=== PATIENT | female | born 1970 | race Caucasian/White ===

== ENCOUNTER 2018-10-15 20:17 | Observation (INO) | payer BC, OTHER ==
[~2018-10-15] VITALS: Ht 167.6 cm; Wt 117.6 kg
[2018-10-15] MEDS ORDERED: RT-ALBUTEROL/IPRATROPIUM 3 ML (DUONEB) VIAL ONE (20:18)
[2018-10-15] MEDS ORDERED: RT-ALBUTEROL SULF 2.5 MG/3 ML PRE-MIX VIAL ONE (20:19)
[2018-10-15] MEDS ORDERED: RT-ALBUTEROL/IPRATROPIUM 3 ML (DUONEB) VIAL INH ONE (20:30)
[2018-10-15] MEDS ORDERED: MAGNESIUM 1 GM/100 ML IVPB 100 ML IV ONE (20:30)
[2018-10-15] MEDS ORDERED: methylPREDNISolone 125 MG (Solu-MEDROL) VIAL IVP ONE (20:30)
[2018-10-15] MEDS: RT-ALBUTEROL SULF 2.5 MG/3 ML PRE-MIX VIAL INH SCH (20:31)
--- NOTE | 2018-10-15 20:34 | ED Respiratory ---
General Chief Complaint: Respiratory Problems Stated Complaint: TROUBLE BREATHING Source: patient Exam Limitations: no limitations History of Present Illness Date Seen by Provider: Oct 15, 2018 Time Seen by Provider: 20:31 Initial Comments Pt awakened with shortness of breath 4-5 days ago which was mild at first. The dyspnea has gotten progressively worse since then associated with wheezing and nonproductive cough. No fevers. She smokes 1/2 ppd but hasnt x4 days. States she sat at another hospital waiting room for 3 hours before coming here. No history of this. No known history of asthma or COPD. states her left lung "shut down" a few years ago from an interaction between topamax and vistaril. She was given fluticasone and salmeterol at that time but states that it only made things worse. Timing/Duration: week, getting worse Severity: moderate Prior Episodes/Possible Cause: occasional episodes Associated Symptoms: cough, shortness of breath, wheezing Allergies and Home Medications Allergies Coded Allergies: hydroxyzine (Unverified Allergy, Severe, 10/15/18) topiramate (Unverified Allergy, Severe, 10/15/18) fluticasone (Unverified Allergy, Intermediate, 10/15/18) montelukast (Unverified Allergy, Intermediate, 10/15/18) salmeterol (Unverified Allergy, Intermediate, 10/15/18) Sulfa (Sulfonamide Antibiotics) (Verified Allergy, Unknown, 10/15/18) Patient Home Medication List Home Medication List Reviewed: Yes Review of Systems Review of Systems Constitutional: see HPI EENTM: see HPI Respiratory: see HPI, cough, short of breath, wheezing Cardiovascular: no symptoms reported Genitourinary: no symptoms reported Musculoskeletal: no symptoms reported Skin: no symptoms reported Psychiatric/Neurological: No Symptoms Reported Hematologic/Lymphatic: No Symptoms Reported Past Gqokryx-Bcbvwd-Fgeftv Hx Patient Social History Recent Foreign Travel: No Contact w/Someone Who Travel: No Physical Exam Vital Signs - First Documented 10/15/18 20:20 Temp 97.8 Pulse 109 Resp 37 B/P (MAP) 121/96 (104) Pulse Ox 97 O2 Delivery Room Air Capillary Refill : Height: '" Weight: lbs. oz. kg; BMI Method: General Appearance: WD/WN, moderate distress (tachypneic. Speaks in short phrases. ) Eyes: Bilateral Eye Normal Inspection, Bilateral Eye PERRL, Bilateral Eye EOMI HEENT: PERRL/EOMI, normal ENT inspection Respiratory: no accessory muscle use, decreased breath sounds, wheezing Cardiovascular: no murmur Gastrointestinal: normal bowel sounds, non tender, soft Neurologic/Psychiatric: alert, normal mood/affect, oriented x 3 Skin: normal color, warm/dry Progress/Results/Core Measures Suspected Sepsis SIRS Temperature: Pulse: Respiratory Rate: Laboratory Tests 10/15/18 20:22: White Blood Count 10.3 Blood Pressure / Mean: Laboratory Tests 10/15/18 20:22: Creatinine 0.86, Platelet Count 276, Total Bilirubin 0.4 Results/Orders Lab Results Laboratory Tests Test 10/15/18 20:22 10/15/18 20:52 Range/Units White Blood Count 10.3 4.3-11.0 10^3/uL Red Blood Count 4.88 4.35-5.85 10^6/uL Hemoglobin 15.0 11.5-16.0 G/DL Hematocrit 45 35-52 % Mean Corpuscular Volume 91 80-99 FL Mean Corpuscular Hemoglobin 31 25-34 PG Mean Corpuscular Hemoglobin Concent 34 32-36 G/DL Red Cell Distribution Width 13.6 10.0-14.5 % Platelet Count 276 130-400 10^3/uL Mean Platelet Volume 11.5 H 7.4-10.4 FL Neutrophils (%) (Auto) 59 42-75 % Lymphocytes (%) (Auto) 31 12-44 % Monocytes (%) (Auto) 9 0-12 % Eosinophils (%) (Auto) 1 0-10 % Basophils (%) (Auto) 0 0-10 % Neutrophils # (Auto) 6.1 1.8-7.8 X 10^3 Lymphocytes # (Auto) 3.2 1.0-4.0 X 10^3 Monocytes # (Auto) 1.0 0.0-1.0 X 10^3 Eosinophils # (Auto) 0.1 0.0-0.3 10^3/uL Basophils # (Auto) 0.0 0.0-0.1 10^3/uL Sodium Level 143 135-145 MMOL/L Potassium Level 3.2 L 3.6-5.0 MMOL/L Chloride Level 105 98-107 MMOL/L Carbon Dioxide Level 23 21-32 MMOL/L Anion Gap 15 H 5-14 MMOL/L Blood Urea Nitrogen 19 H 7-18 MG/DL Creatinine 0.86 0.60-1.30 MG/DL Estimat Glomerular Filtration Rate > 60 BUN/Creatinine Ratio 22 Glucose Level 93 70-105 MG/DL Calcium Level 10.2 H 8.5-10.1 MG/DL Corrected Calcium 8.5-10.1 MG/DL Magnesium Level 1.5 L 1.6-2.4 MG/DL Total Bilirubin 0.4 0.1-1.0 MG/DL Aspartate Amino Transf (AST/SGOT) 62 H 5-34 U/L Alanine Aminotransferase (ALT/SGPT) 63 H 0-55 U/L Alkaline Phosphatase 160 H 40-136 U/L Troponin I < 0.028 <0.028 NG/ML B-Type Natriuretic Peptide 28.5 <100.0 PG/ML Total Protein 8.0 6.4-8.2 GM/DL Albumin 4.7 H 3.2-4.5 GM/DL Serum Test, Qualitative NEGATIVE NEGATIVE Urine Color DIANA H Urine Clarity CLEAR Urine pH 6 5-9 Urine Specific Drayden 1.025 H 1.016-1.022 Urine Protein 2+ H NEGATIVE Urine Glucose (UA) NEGATIVE NEGATIVE Urine Ketones 2+ H NEGATIVE Urine Nitrite NEGATIVE NEGATIVE Urine Bilirubin 1+ H NEGATIVE Urine Urobilinogen 1 NORMAL MG/DL Urine Leukocyte Esterase 2+ H NEGATIVE Urine RBC (Auto) 1+ H NEGATIVE Urine RBC 0-2 /HPF Urine WBC 5-10 H /HPF Urine Squamous Epithelial Cells 5-10 /HPF Urine Crystals PRESENT H /LPF Urine Amorphous Sediment LARGE MAAME URATES H /LPF Urine Bacteria TRACE /HPF Urine Casts NONE /LPF Urine Mucus NEGATIVE /LPF Urine Trichomonas FEW H /HPF Urine Culture Indicated YES My Orders Orders - HAKAN PRINCE DATA ENTRY SUPERVISOR Cbc With Automated Diff (10/15/18 20:26) Comprehensive Metabolic Panel (10/15/18 20:26) Ua Culture If Indicated (10/15/18 20:26) Ed Iv/Invasive Line Start (10/15/18 20:26) Magnesium (10/15/18 20:26) Hcg,Qualitative Serum (10/15/18 20:26) Chest 1 View, Ap/Pa Only (10/15/18 20:26) BNP (10/15/18 20:26) Troponin I (10/15/18 20:26) Ekg Tracing (10/15/18 20:26) Ed Iv/Invasive Line Start (10/15/18 20:26) Albuterol/Ipra Inhalation Soln (Duoneb I (10/15/18 20:30) Svn Small Volume Nebulizer (10/15/18 20:26) Methylprednisolone Sod Succ (Solu-Medrol (10/15/18 20:30) Magnesium 1 Gm/100 Ml Ivpb (Magnesium Godoy (10/15/18 20:30) Albuterol Pre-Mix Nebs (Rt) (Proventil (10/15/18 20:30) Svn Small Volume Nebulizer (10/15/18 20:26) Ondansetron Injection (Zofran Injectio (10/15/18 20:45) Ondansetron Injection (Zofran Injectio (10/15/18 20:36) Potassium Cl 10meq/50ml Ivpb (Kcl 10 Meq (10/15/18 21:00) Urine Culture (10/15/18 20:52) Ns (Ivpb) (Sodium Chloride 0.9%) (10/15/18 21:15) Medications Given in ED Current Medications Medications Dose Ordered Sig/Kaykay Route Start Time Stop Time Status Last Admin Dose Admin Albuterol Sulfate 2.5 mg STK-MED ONCE .ROUTE 10/15/18 20:19 10/15/18 20:27 DC 10/15/18 20:31 2.5 MG Albuterol/ Ipratropium 3 ml STK-MED ONCE .ROUTE 10/15/18 20:18 10/15/18 20:26 DC 10/15/18 20:31 3 ML Magnesium Sulfate/ Dextrose 100 ml @ 100 mls/hr ONCE ONCE IV 10/15/18 20:30 10/15/18 21:29 DC 10/15/18 20:42 100 MLS/HR Methylprednisolone Sodium Succinate 125 mg ONCE ONCE IVP 10/15/18 20:30 10/15/18 20:31 DC 10/15/18 20:41 125 MG Ondansetron HCl 8 mg ONCE ONCE IVP 10/15/18 20:45 10/15/18 20:46 DC 10/15/18 20:45 8 MG Potassium Chloride 50 ml @ 50 mls/hr ONCE ONCE IV 10/15/18 21:00 10/15/18 21:59 10/15/18 21:19 50 MLS/HR Sodium Chloride 250 ml @ 0 mls/hr Q0M ONCE IV 10/15/18 21:15 10/15/18 21:16 DC 10/15/18 21:19 0 MLS/HR Vital Signs/I&O 10/15/18 10/15/18 20:20 20:32 Temp 97.8 Pulse 109 Resp 37 B/P (MAP) 121/96 (104) Pulse Ox 97 95 O2 Delivery Room Air Room Air Capillary Refill : Departure Communication (Admissions) Time/Spoke to Admitting Phy: 21:[address] Brandon, recommended agrees to admit observation status with the consult pulmonology. I spoke with Dr. Graff,he agrees to consult. 7-Pt has received 1gm mag sulfate iv bolus, hour long breathing treatment, solumedrol iV. O2 saturation remains 99% on the breathing treatment but she is still very wheezy on expiration. Would feel better admitting overnight for continued breathing treatments and observation. Impression Primary Impression: Reactive airway disease Qualified Codes: J45.901 - Unspecified asthma with (acute) exacerbation Disposition: ADMITTED INPATIENT Condition: Stable Admissions Decision to Admit Reason: Admit from ER (General) Decision to Admit/Date: Oct 15, 2018 Time/Decision to Admit Time: 21:39 Departure-Patient Inst. Referrals: NO,LOCAL PHYSICIAN (PCP/Family) Primary Care Physician HAKAN PRINCE APRN Oct 15, 2018 20:34
[2018-10-15] MEDS ORDERED: ONDANSETRON 4 MG/2 ML (SDV) Z0FRAN ONE (20:36)
[2018-10-15 20:38] LABS: BASOPHILS % (AUTO) 0 % (0-10); EOSINOPHILS # (AUTO) 0.1 10^3/uL (0.0-0.3); EOSINOPHILS % (AUTO) 1 % (0-10); HEMATOCRIT 45 % (35-52); LYMPHOCYTES # (AUTO) 3.2 X 10^3 (1.0-4.0); LYMPHOCYTES % (AUTO) 31 % (12-44); MEAN CORPUSCULAR HEMOGLOBIN 31 PG (25-34); MEAN CORPUSCULAR HGB CONC 34 G/DL (32-36); MEAN CORPUSCULAR VOLUME 91 FL (80-99); MEAN PLATELET VOLUME 11.5 FL (7.4-10.4); MONOCYTES % (AUTO) 9 % (0-12); NEUTROPHILS # (AUTO) 6.1 X 10^3 (1.8-7.8); NEUTROPHILS % (AUTO) 59 % (42-75); PLATELET COUNT 276 10^3/uL (130-400); RED CELL DISTRIBUTION WIDTH 13.6 % (10.0-14.5); WHITE BLOOD COUNT 10.3 10^3/uL (4.3-11.0)
[2018-10-15] MEDS ORDERED: ONDANSETRON 4 MG/2 ML (SDV) Z0FRAN IVP ONE (20:45)
[2018-10-15 20:50] LABS: ALANINE AMINOTRANSFERASE 63 U/L (0-55); ALBUMIN 4.7 GM/DL (3.2-4.5); ALKALINE PHOSPHATASE 160 U/L (40-136); BILIRUBIN,TOTAL 0.4 MG/DL (0.1-1.0); BUN/CREATININE RATIO 22; CALCIUM 10.2 MG/DL (8.5-10.1); CARBON DIOXIDE 23 MMOL/L (21-32); CHLORIDE 105 MMOL/L (98-107); CREATININE SERUM 0.86 MG/DL (0.60-1.30); GFR ESTIMATED > 60; GLUCOSE 93 MG/DL (70-105); MAGNESIUM 1.5 MG/DL (1.6-2.4); POTASSIUM 3.2 MMOL/L (3.6-5.0); SODIUM 143 MMOL/L (135-145)
[2018-10-15 20:57] LABS: CLARITY,URINE CLEAR; COLOR,URINE AMBER; GLUCOSE, URINE (UA) NEGATIVE (NEGATIVE); KETONES,URINE 2+ (NEGATIVE); LEUKOCYTE ESTERASE ,URINE 2+ (NEGATIVE); NITRITE,URINE NEGATIVE (NEGATIVE); PH,URINE 6 (5-9); PROTEIN,URINE 2+ (NEGATIVE); UROBILINOGEN,URINE 1 MG/DL (NORMAL)
[2018-10-15] MEDS ORDERED: POTASSIUM CL 10MEQ/50ML IVPB 50 ML IV ONE (21:00)
--- NOTE | 2018-10-15 21:04 | NUR ---
PT DENIES IMPROVEMENT AT THIS TIME. HAKAN MADE AWARE.
[2018-10-15 21:06] LABS: AMORPHOUS SEDIMENT,UR LARGE AMOR URATES /LPF; BACTERIA,URINE TRACE /HPF; RBC,URINE 0-2 /HPF
[2018-10-15 21:07] LABS: BILIRUBIN,URINE 1+ (NEGATIVE); TRICHOMONAS,URINE FEW /HPF
[2018-10-15] MEDS ORDERED: NS (IVPB) 250 ML IV ONE (21:15)
--- NOTE | 2018-10-15 21:29 | Diagnostic Imaging Report ---
EXAM: Chest 1 view, AP/PA only. INDICATION: Shortness of air. COMPARISON: None. FINDINGS: Normal heart size and pulmonary vascularity. No dense consolidation, pleural effusion or pneumothorax. No acute osseous findings. IMPRESSION: Negative chest. Dictated by: Dictated on workstation # [id number]
--- NOTE | 2018-10-15 22:32 | NUR ---
REPORT RECEIVED FROM ED NURSE AT THIS TIME. THIS RN WILL AWAIT PTS ARRIVAL TO FLOOR.
--- NOTE | 2018-10-15 22:40 | NUR ---
SETH SANTIAGO admitted to room 423-1, with an admitting diagnosis of Reactive Airway Disease, on 10/15/18 from ED via stretcher, accompanied by staff.SETH SANTIAGO introduced to surroundings, call light, bed controls, phone, TV, temperature control, lights, meal times, smoking policy, visitor policy, side rail policy, bathrooms and showers. Patient Rights given to patient in the handbook. SETH SANTIAGO verbalizes understanding that [facility] is not responsible for the loss or damage to any personal effects or valuables that are kept in the patients posession during their hospitalization.
[2018-10-15 22:57] VITALS: BP 128/85
[2018-10-15] MEDS ORDERED: TRAM50TA2 PO (23:31)
[2018-10-15] MEDS ORDERED: PROM25TA14 PO (23:32)
[2018-10-15] MEDS ORDERED: AMIT25TA9 PO (23:32)
[2018-10-15] MEDS ORDERED: ROSU40TA23 PO (23:32)
[2018-10-15] MEDS ORDERED: GALC100S SQ (23:34)
[2018-10-15] MEDS ORDERED: BUSP5TAB59 PO (23:34)
[2018-10-15] MEDS ORDERED: ONDANSETRON 4 MG/2 ML (SDV) Z0FRAN IV PRN (23:45)
[2018-10-16] VITALS (7 sets, daily range): BP systolic 113–137; BP diastolic 65–77
[2018-10-16] MEDS: RT-ALBUTEROL/IPRATROPIUM 3 ML (DUONEB) VIAL INH SCH ×5 (02:30→20:16)
[2018-10-16] MEDS ORDERED: methylPREDNISolone 125 MG (Solu-MEDROL) VIAL IV SCH (04:30)
[2018-10-16] MEDS: predniSONE 20 MG TAB PO SCH (09:28)
--- NOTE | 2018-10-16 09:45 | Pulmonary Consultation ---
History of Present Illness History of Present Illness Date of Consultation 10/16/18 09:40 Time Seen by Provider: 09:40 Date of Admission History of Present Illness 47 yo with hx of tobacco use presented secondary to worsening SOB, wheezing, nonproductive cough that started about 5 days ago. No known history of asthma or COPD. Allergies and Home Medications Allergies Coded Allergies: hydroxyzine (Unverified Allergy, Severe, 10/15/18) topiramate (Unverified Allergy, Severe, 10/15/18) fluticasone (Unverified Allergy, Intermediate, 10/15/18) montelukast (Unverified Allergy, Intermediate, 10/15/18) salmeterol (Unverified Allergy, Intermediate, 10/15/18) Sulfa (Sulfonamide Antibiotics) (Verified Allergy, Unknown, 10/15/18) Home Medications Amitriptyline HCl 25 Mg Tablet, 25 MG PO DAILY, (Reported) Buspirone HCl 5 Mg Tablet, 2 MG PO DAILY, (Reported) Galcanezumab-Gnlm 100 Mg/1 Ml Syringe, 100 MG SQ UD, (Reported) Promethazine HCl 25 Mg Tablet, 25 MG PO DAILY, (Reported) Rosuvastatin Calcium 40 Mg Tablet, 40 MG PO DAILY, (Reported) Tramadol HCl 50 Mg Tablet, 50 MG PO TID, (Reported) Past Acopooo-Haawuc-Ttjabv Hx Patient Social History Alcohol Use: Rarely Uses Number of Drinks Today: 0 Alcohol Beverage of Choice: Wine Recreational Drug Use: No Smoking Status: Current Everyday Smoker Type Used: Cigarettes Recent Foreign Travel: No Contact w/Someone Who Travel: No Recent Infectious Disease Expo: No Recent Hopitalizations: No Immunizations Up To Date PED Vaccines UTD: No Date of Pneumonia Vaccine: Sep 22, 2008 Seasonal Allergies Seasonal Allergies: No Past Medical History Surgeries: Yes Respiratory: No Cardiac: No Neurological: No Headaches /Migraines Genitourinary: No Gastrointestinal: No Musculoskeletal: Yes Fibromyalgia, Scoliosis, Chronic Back Pain Endocrine: No HEENT: No Cancer: No Psychosocial: Yes (MANIC DEPRESSION) Bipolar Integumentary: No Blood Disorders: No Family Medical History Patient reports no known family medical history. Sepsis Event Evaluation Height, Weight, BMI Height: 5'6.00" Weight: 259lbs. 4.0oz. 117.328361ac; 41.8 BMI Method:Stated Exam Exam Vital Signs Date Time Temp Pulse Resp B/P (MAP) Pulse Ox O2 Delivery O2 Flow Rate FiO2 10/16/18 07:35 97.5 97 20 125/65 (85) 96 Nasal Cannula 3.00 10/16/18 07:06 93 Nasal Cannula 3.00 10/16/18 07:00 113 10/16/18 04:08 96.9 88 20 113/75 (88) 95 Nasal Cannula 2.00 10/16/18 02:30 92 Nasal Cannula 2.00 10/16/18 01:00 93 10/16/18 00:15 89 95 21 10/16/18 00:11 97.5 89 20 116/75 (89) 94 Nasal Cannula 2.00 10/15/18 23:50 Nasal Cannula 2.00 10/15/18 23:49 90 10/15/18 22:57 99.7 110 29 128/85 (99) 98 Nasal Cannula 2.00 10/15/18 22:57 99.7 110 29 128/85 98 Nasal Cannula 2.00 10/15/18 22:45 Room Air 10/15/18 22:33 98.3 99 24 131/83 (99) 96 Nasal Cannula 2.00 10/15/18 20:32 95 Room Air 10/15/18 20:20 97.8 109 37 121/96 (104) 97 Room Air I & O 10/16/18 07:00 Intake Total 800 ml Balance 800 ml Height & Weight Height: 5'6.00" Weight: 259lbs. 4.0oz. 117.418618jh; 41.8 BMI Method:Stated Capillary Refill: Less Than 3 Seconds Gastrointestinal: normal bowel sounds, non tender, soft Results Lab Laboratory Tests 10/15/18 20:22 Assessment/Plan Assessment/Plan Acute bronchitis vs asthma -Currently on 3 liters of oxygen -CXR is negative -Needs out pt testing -SVNs -Prednisone -Monitor KIM ELIZONDO DO Oct 16, 2018 09:45
[2018-10-16] MEDS ORDERED: RT-ALBUTEROL SULF 2.5 MG/3 ML PRE-MIX VIAL INH STA (10:12)
[2018-10-16] MEDS ORDERED: RT-IPRATROPIUM (ATROVENT) 0.5MG/2.5ML AMP IH STA (10:12)
[2018-10-16 10:25] LABS: ALANINE AMINOTRANSFERASE 54 U/L (0-55); ALBUMIN 4.1 GM/DL (3.2-4.5); ALKALINE PHOSPHATASE 145 U/L (40-136); BILIRUBIN,TOTAL 0.3 MG/DL (0.1-1.0); BUN/CREATININE RATIO 18; CALCIUM 8.8 MG/DL (8.5-10.1); CARBON DIOXIDE 18 MMOL/L (21-32); CHLORIDE 105 MMOL/L (98-107); CREATININE SERUM 0.83 MG/DL (0.60-1.30); GFR ESTIMATED > 60; GLUCOSE 299 MG/DL (70-105); MAGNESIUM 1.6 MG/DL (1.6-2.4); POTASSIUM 3.7 MMOL/L (3.6-5.0); SODIUM 140 MMOL/L (135-145); TOTAL PROTEIN 7.1 GM/DL (6.4-8.2)
--- NOTE | 2018-10-16 10:54 | History & Physical-Hospitalist ---
History of Present Illness HPI/Chief Complaint Guerline Rivera is a 47-year-old female with past medical history of hyperlipidemia, anxiety, who presented with shortness of breath and cough. She states that the symptoms began on Wednesday. She says that they have been w orsening since that time. She initially drove to the emergency room in [place], but due to the long wait she decided to come to the [facility]. She denies fevers and chills. She reports some chest discomfort which is only present after she coughs. She does report orthopnea and PND. She also reports snoring and observed apneas. She reports that she had attempted a sleep study but was unable to complete it. She reports a history of "my left lung shutting down". She says that it was due to a medication and that she does not follow with a jewelsmith. She does smoke about a half a pack a day for the past 8 years. She has no known family history of lung disease as she is adopted. Source: patient Exam Limitations: no limitations Date Seen 10/16/18 Time Seen by a Provider: 09:30 Attending Physician Carie Hanley MD PCP No,Local Physician Referring Physician Date of Admission Oct 15, 2018 at 21:37 Home Medications & Allergies Home Medications Reviewed patient Home Medication Reconciliation performed by pharmacy medication reconciliations infectious disease technician and/or nursing. Patients Allergies have been reviewed. Allergies Allergies Coded Allergies hydroxyzine (Unverified Allergy, Severe, 10/15/18) topiramate (Unverified Allergy, Severe, 10/15/18) fluticasone (Unverified Allergy, Intermediate, 10/15/18) montelukast (Unverified Allergy, Intermediate, 10/15/18) salmeterol (Unverified Allergy, Intermediate, 10/15/18) Sulfa (Sulfonamide Antibiotics) (Verified Allergy, Unknown, 10/15/18) Past Uequqmh-Hrheui-Enrdzn Hx Past Med/Social Hx: Reviewed Nursing Past Med/Soc Hx Patient Social History Alcohol Use: Rarely Uses Number of Drinks Today: 0 Alcohol Beverage of Choice: Wine Recreational Drug Use: No Smoking Status: Current Everyday Smoker Type Used: Cigarettes Physical Abuse Screen: No Sexual Abuse: No Recent Foreign Travel: No Contact w/other who traveled: No Recent Hopitalizations: No Recent Infectious Disease Expo: No Immunizations Up To Date Pediatric: No Date of Pneumonia Vaccine: Sep 22, 2008 Seasonal Allergies Seasonal Allergies: No Past Medical History Neurological: Headaches /Migraines Musculoskeletal: Fibromyalgia, Scoliosis, Chronic Back Pain Psychosocial: Bipolar History of Blood Disorders: No Family History Patient reports no known family medical history. Review of Systems Constitutional: No chills, No fever EENTM: no symptoms reported Respiratory: cough, short of breath, wheezing Cardiovascular: chest pain Gastrointestinal: no symptoms reported Musculoskeletal: no symptoms reported Skin: no symptoms reported Psychiatric/Neurological: No Symptoms Reported Physical Exam Physical Exam Vital Signs Vital Signs - First Documented 10/15/18 10/15/18 10/16/18 20:20 22:33 00:15 Temp 97.8 Pulse 109 Resp 37 B/P (MAP) 121/96 (104) Pulse Ox 97 O2 Delivery Room Air O2 Flow Rate 2.00 FiO2 21 Capillary Refill : Less Than 3 Seconds Height, Weight, BMI Height: 5'6.00" Weight: 259lbs. 4.0oz. 117.143279ue; 41.8 BMI Method:Stated General Appearance: No Apparent Distress, WD/WN, Anxious, Obese HEENT: PERRL/EOMI, Pharynx Normal, Moist Mucous Membranes Neck: Normal Inspection, Non Tender, Supple; No Thyromegaly Respiratory: No Accessory Muscle Use, No Respiratory Distress; No Crackles, No Decreased Breath Sounds, No Rhonci; Wheezing (diffuse expiratory and inspiratory wheezing) Cardiovascular: Regular Rate, Rhythm, No Edema, No Murmur Gastrointestinal: Normal Bowel Sounds, Non Tender, Soft Extremity: Normal Inspection, Non Tender, No Pedal Edema Neurologic/Psychiatric: Alert, Oriented x3, No Motor/Sensory Deficits Skin: Normal Color, Warm/Dry Lymphatic: No Adenopathy Results Results/Procedures Labs Laboratory Tests 10/15/18 20:22 10/16/18 10:00 Patient resulted labs reviewed. Imaging: Reviewed Imaging Films, Reviewed Imaging Report Assessment/Plan Admission Diagnosis reactive airway disease with wheezing with acute exacerbation Admission Status: Observation Reason for Inpatient Admission: likely obstructive sleep apnea Morbid obesity Steroid-induced hyperglycemia Elevated LFTs High anion gap metabolic acidosis Assessment and Plan Reactive airway disease with wheezing with acute exacerbation Acute respiratory failure with hypoxia likely underlying asthma mild oxygen requirement Chest x-ray is unrevealing Started on MAT protocol given Solu-Medrol in the ER Continue prednisone and breathing treatments Consult pulmonology, appreciate recommendations Planning for CT chest today will obtain respiratory viral panel Steroid-induced hyperglycemia Begin Accu-Cheks before meals and at bedtime Sliding scale insulin Elevated LFTs LFTs improving this morning likely fatty liver disease Right upper quadrant ultrasound ordered high anion gap metabolic acidosis Obtain lactic acid level hypomagnesemia Continue to monitor and replace as needed likely obstructive sleep apnea High-risk stop bang score Continue oxygen overnight as needed Would recommend outpatient sleep study Morbid obesity BMI 41.8 Clinically significant, no acute management needs Diagnosis/Problems Diagnosis/Problems (1) Reactive airway disease with wheezing with acute exacerbation Status: Acute (2) Hyperlipidemia Status: Chronic (3) Anxiety Status: Chronic (4) Morbid obesity Status: Chronic (5) Hypomagnesemia Status: Acute (6) Steroid-induced hyperglycemia Status: Acute (7) Elevated LFTs Status: Acute (8) High anion gap metabolic acidosis Status: Acute (9) Acute respiratory failure with hypoxia Status: Acute Clinical Quality Measures DVT/VTE Risk/Contraindication: Risk Factor Score Per Nursin RFS Level Per Nursing on Admit: 3=High CARIE HANLEY MD Oct 16, 2018 10:54
[2018-10-16] MEDS ORDERED: KCL 20 MEQ TAB (K-DUR) PO ONE (11:00)
[2018-10-16] MEDS ORDERED: NS IV 1000 ML 1,000 ML IV SCH (12:15)
[2018-10-16] MEDS: MAGNESIUM 1 GM/100 ML IVPB 100 ML IV SCH ×2 (12:36→15:28)
[2018-10-16] MEDS: NS IV 1000 ML 1,000 ML IV SCH (12:36)
[2018-10-16] MEDS ORDERED: MAGNESIUM 1 GM/100 ML IVPB 100 ML IV ONE (15:20)
--- NOTE | 2018-10-16 16:31 | Diagnostic Imaging Report ---
PROCEDURE: CT chest with contrast only. TECHNIQUE: Multiple contiguous axial images were obtained through the chest after administration of intravenous contrast. Auto Exposure Controls were utilized during the CT exam to meet ALARA standards for radiation dose reduction. INDICATION: Infiltrative mass. COMPARISON: There are no prior CT chest examinations av for comparison. FINDINGS: The plain film examination of the chest performed on 10/15/2018 failed to show any sign of an acute cardiopulmonary abnormality. On this study, the heart size is within normal limits. The pulmonary arteries are not well opacified and consequently difficult to assess for a pulmonary embolus. There is no definite defect to suggest a pulmonary embolus. The aorta is not abnormally dilated and there is no sign of dissection. There are patchy alveolar/interstitial infiltrates in the right lower lobe and in the medial aspect of the left lung base. These findings may be chronic in nature. The possibility that they are related to mild pneumonia/atelectasis should still be considered. There is no pleural effusion identified. There is no mediastinal or hilar adenopathy. The thyroid gland is generally unremarkable. There is no obvious breast mass. Sections through the upper abdomen show that the liver is of lower density than usually seen. 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 The gallbladder is also surgically absent. In addition, there is a 1.7 cm rounded area of low density associated with the left adrenal gland. This finding is most likely a benign process. Even so, additional imaging is warranted. I would recommend that either a followup CT abdomen exam with adrenal protocol imaging be performed or MRI with adrenal protocol. The bone windows show no sign of a fracture or of a destructive lesion. IMPRESSION: 1. The vague alveolar/interstitial infiltrates involving the right lower lobe and medial aspect of the left lung base are of uncertain etiology. These could be chronic in nature but the possibility that the are related to mild acute pneumonia/atelectasis should still be considered. 2. There is no acute cardiopulmonary abnormality noted otherwise. 3. The low density nodule associated with the left adrenal gland is most likely a benign process. Recommendations as above. Dictated by: Dictated on workstation # [id number]
[2018-10-16] MEDS: inSUlin ASPART (NovoLOG) 1 UNIT/0.01 ML (CHARGE PER UNIT) SC SCH ×2 (16:50→22:14)
[2018-10-16] MEDS ORDERED: LEVOFLOXACIN 750 MG/150 ML IV 150 ML IV ONE (17:15)
[2018-10-16] MEDS: LIDOCAINE 4% (SALONPAS) PATCH TOP SCH (20:39)
[2018-10-17] VITALS: BP 113/78
[2018-10-17] MEDS: RT-ALBUTEROL/IPRATROPIUM 3 ML (DUONEB) VIAL INH SCH ×6 (01:59→23:23)
[2018-10-17] MEDS: NS IV 1000 ML 1,000 ML IV SCH (03:39)
[2018-10-17 04:57] VITALS: BP 118/78
[2018-10-17] MEDS: inSUlin ASPART (NovoLOG) 1 UNIT/0.01 ML (CHARGE PER UNIT) SC SCH ×4 (05:05→21:49)
[2018-10-17] MEDS: predniSONE 20 MG TAB PO SCH (06:25)
[2018-10-17 06:30] LABS: BUN/CREATININE RATIO 17; CALCIUM 8.4 MG/DL (8.5-10.1); CARBON DIOXIDE 25 MMOL/L (21-32); CHLORIDE 109 MMOL/L (98-107); CREATININE SERUM 0.69 MG/DL (0.60-1.30); GFR ESTIMATED > 60; GLUCOSE 105 MG/DL (70-105); MAGNESIUM 2.4 MG/DL (1.6-2.4); POTASSIUM 3.7 MMOL/L (3.6-5.0); SODIUM 143 MMOL/L (135-145)
--- NOTE | 2018-10-17 07:10 | NUR ---
When RT entered the patients room she was on 3 L NC and RT decreased her to 2 L NC, RN and Aide was both notified that patients O2 was decreased; Bilateral Upper Lobes was Exp Wheezes before and after the SVN BT; Bilateral Lower Lobes was Diminished before and after.
[2018-10-17 08:00] VITALS: BP 138/78
[2018-10-17] MEDS: LIDOCAINE 4% (SALONPAS) PATCH TOP SCH (08:51)
--- NOTE | 2018-10-17 08:58 | Diagnostic Imaging Report ---
PROCEDURE: US Abdomen, limited. TECHNIQUE: Multiple realtime grayscale images were obtained over the abdomen in various projections. INDICATION: Elevated ALTs. FINDINGS: Liver measures 27 cm. There is nonspecific hypoechoic area in the left lobe of liver measuring 1.1 x 0.9 cm. Gallbladder is surgically absent. Common bile duct is not seen although there is no intrahepatic biliary ductal dilatation. The visualized portions of pancreas are unremarkable. Right kidney is normal. There is no ascites. IMPRESSION: Mild hepatomegaly otherwise unremarkable right upper quadrant ultrasound status post cholecystectomy. Dictated by: Dictated on workstation # [id number]
[2018-10-17] MEDS ORDERED: LIDOCAINE 4% (SALONPAS) PATCH TOP SCH (09:00)
[2018-10-17] MEDS ORDERED: BUSP10TA95 PO (10:09)
[2018-10-17] MEDS ORDERED: GALC120P SQ (10:09)
[2018-10-17] MEDS ORDERED: PRD20T PO (10:12)
[2018-10-17] MEDS ORDERED: BENZ-36 PO (10:12)
[2018-10-17] MEDS ORDERED: DOXY100C42 PO (10:12)
[2018-10-17] MEDS ORDERED: NAPR220C11 PO (10:15)
[2018-10-17] MEDS ORDERED: RANI-324 PO (10:15)
--- NOTE | 2018-10-17 10:15 | NUR ---
SPOKE WITH PT WELL CALLING FABI AND DR. NIX TO COMPLETE THE MED REC. 07-20-2018 ROSUVASTATIN 40MG: #90/90 DS ( OFFICE INDICATED THIS WAS SENT VIA MAIL ORDER) 08-06-2018 PROMETHAZINE 25MG:PRN PT SAYS SHE STILL HAS SOME LEFT 09-01-2018 AMITRIPTYLINE 25MG: #90/90DS 09-14-2018 EMGALITY 125MG: #1/30DS 10-07-2018 BUSPIRONE 10MG: #60/30DS 10-07-2018 TRAMADOL 50MG: #90/30DS 10-12-2018 BENZONATATE 100MG: #30/10DS 10-12-2018 DOXYCYCLINE MONO 100MG: #20/10DS OTC MEDS: ALEVE 22M-4 TABS Q 8 H PRN ZANTAC 75M DAILY PRN
[2018-10-17 10:38] LABS: PARAINFLU 2 PCR Not Detected (Not Detected)
--- NOTE | 2018-10-17 11:30 | NUR ---
After knocking and entering the pt's room, she was observed weeping while texting on her phone. She shared that she had just received word from her doctor that she has lung disease, and that was texting her , children and employer the news. I offered active listening as she shared that she has been the primary support in her family, and now needs her family to "step up." Her is unemployed at this time, and her son Usama and his girlfriend live with them, and are expecting their first child. Guerline said they have all smoked in the house for years, but that she has quite smoking "as of last Wednesday" and needs her household to quit, as well as find employment. The pt verbalized feeling overwhelmed and "needing a good cry to clear my thoughts." I concluded our visits and checked in with her again about 30 minutes later. She said "I talked to my family, and they are all supportive and are going to help me out."
[2018-10-17] MEDS: LEVOFLOXACIN 750 MG TAB (LEVAQUIN) PO SCH (11:53)
[2018-10-17 12:00] VITALS: BP 134/85
--- NOTE | 2018-10-17 13:39 | Pulmonary Progress Note ---
Subjective Time Seen by a Provider: 07:31 Subjective/Events-last exam Pt is feeling improved. Sepsis Event Evaluation Height, Weight, BMI Height: 5'6.00" Weight: 259lbs. 4.0oz. 117.298459xu; 41.8 BMI Method:Stated Focused Exam Lactate Level 10/16/18 18:43: Lactic Acid Level 4.01*H 10/17/18 00:25: Lactic Acid Level 2.00 10/17/18 05:50: Lactic Acid Level 1.68 Exam Exam Vital Signs Date Time Temp Pulse Resp B/P (MAP) Pulse Ox O2 Delivery O2 Flow Rate FiO2 10/17/18 13:00 98 10/17/18 12:00 97.0 96 20 134/85 (101) 95 Nasal Cannula 3.00 10/17/18 11:22 95 Nasal Cannula 2.00 10/17/18 08:00 Nasal Cannula 2.00 10/17/18 08:00 97.6 94 18 138/78 (98) 92 Nasal Cannula 3.00 10/17/18 07:02 96 Nasal Cannula 3.00 10/17/18 07:00 83 10/17/18 04:57 96.4 87 20 118/78 (91) 98 Nasal Cannula 3.00 10/17/18 01:59 95 Nasal Cannula 3.00 10/17/18 01:00 86 10/17/18 00:00 96.1 81 18 113/78 (90) 95 Nasal Cannula 3.00 10/16/18 20:17 93 Nasal Cannula 3.00 10/16/18 20:00 96.8 105 18 126/72 (90) 93 Nasal Cannula 3.00 10/16/18 20:00 Nasal Cannula 2.00 10/16/18 19:00 105 10/16/18 16:00 97.8 107 18 133/77 (95) 95 Nasal Cannula 3.00 10/16/18 14:19 93 Nasal Cannula 3.00 I & O 10/17/18 07:00 Intake Total 2530 ml Output Total 700 ml Balance 1830 ml Height & Weight Height: 5'6.00" Weight: 259lbs. 4.0oz. 117.883774bw; 41.8 BMI Method:Stated General Appearance: No Apparent Distress, WD/WN, Anxious, Obese HEENT: PERRL/EOMI, Pharynx Normal, Moist Mucous Membranes Neck: Normal Inspection, Non Tender, Supple; No Thyromegaly Respiratory: No Accessory Muscle Use, No Respiratory Distress; No Crackles, No Decreased Breath Sounds, No Rhonci; Wheezing (diffuse expiratory and inspiratory wheezing) Cardiovascular: Regular Rate, Rhythm, No Edema, No Murmur Capillary Refill: Less Than 3 Seconds Gastrointestinal: normal bowel sounds, non tender, soft Extremity: Normal Inspection, Non Tender, No Pedal Edema Neurologic/Psychiatric: Alert, Oriented x3, No Motor/Sensory Deficits Skin: Normal Color, Warm/Dry Lymphatic: No Adenopathy Results Lab Laboratory Tests 10/15/18 20:22 10/16/18 10:00 10/17/18 05:50 Assessment/Plan Assessment/Plan Acute bronchitis vs asthma -Currently on 3 liters of oxygen -CT chest reviewed -CXR is negative -Needs out pt testing -SVNs -Prednisone -Monitor -RVP - Pending Atelectasis -IS KIM ELIZONDO DO Oct 17, 2018 13:39
--- NOTE | 2018-10-17 15:36 | Progress Note - Hospitalist ---
Subjective HPI/CC On Admission Date Seen by Provider: Oct 17, 2018 Time Seen by Provider: 15:30 Guerline Rivera is a 47-year-old female with past medical history of hyperlipidemia, anxiety, who presented with shortness of breath and cough. She states that the symptoms began on Wednesday. She says that they have been worsening since that time. She initially drove to the emergency room in [place], but due to the long wait she decided to come to the [facility] ER. She denies fevers and chills. She reports some chest discomfort which is only present after she coughs. She does report orthopnea and PND. She also reports snoring and observed apneas. She reports that she had attempted a sleep study but was unable to complete it. She reports a history of "my left lung shutting down". 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 She does smoke about a half a pack a day for the past 8 years. She has no known family history of lung disease as she is adopted. Subjective/Events-last exam Pt reports feeling better today but still short of breath and wheezing. States is not normally on inhalers or oxygen but has needed oxygen 24/7 for the past week. Focused Exam Lactate Level 10/16/18 18:43: Lactic Acid Level 4.01*H 10/17/18 00:25: Lactic Acid Level 2.00 10/17/18 05:50: Lactic Acid Level 1.68 Objective Exam Vital Signs Vital Signs Date Time Temp Pulse Resp B/P (MAP) Pulse Ox O2 Delivery O2 Flow Rate FiO2 10/17/18 14:21 95 Nasal Cannula 2.00 10/17/18 13:00 98 10/17/18 12:00 97.0 20 134/85 (101) 10/16/18 00:15 21 Capillary Refill : Less Than 3 SecondsLess Than 3 Seconds General Appearance: No Apparent Distress, WD/WN Respiratory: No Accessory Muscle Use, No Respiratory Distress, Wheezing Cardiovascular: Regular Rate, Rhythm, No Murmur Results/Procedures Lab Laboratory Tests 10/17/18 05:50 Patient resulted labs reviewed. Imaging: Reviewed Imaging Films, Reviewed Imaging Report Assessment/Plan Assessment and Plan Assess & Plan/Chief Complaint Reactive airway disease with wheezing with acute exacerbation Acute respiratory failure with hypoxia likely underlying asthma vs COPD - remains oxygen dependent will get home testinge MAT protocol Continue prednisone Consult pulmonology, appreciate recommendations pending respiratory viral panel Steroid-induced hyperglycemia Begin Accu-Cheks before meals and at bedtime Sliding scale insulin Elevated LFTs likely fatty liver disease Right upper quadrant ultrasound with no acute findings hypomagnesemia- resolved likely obstructive sleep apnea Likely needs PSG with Pulm as an outpatient Morbid obesity BMI 41.8 Clinically significant, no acute management needs Diagnosis/Problems Diagnosis/Problems (1) Reactive airway disease with wheezing with acute exacerbation Status: Acute (2) Steroid-induced hyperglycemia Status: Acute (3) Elevated LFTs Status: Acute (4) Morbid obesity Status: Chronic Clinical Quality Measures DVT/VTE Risk/Contraindication: Risk Factor Score Per Nursin RFS Level Per Nursing on Admit: 3=High LLOYD COY MD Oct 17, 2018 3:36 pm
[2018-10-17 15:50] LABS: PARAINFLU 1 PCR Not Detected (Not Detected); RSV PCR Not Detected (Not Detected)
[2018-10-17 15:57] VITALS: BP 124/62
--- NOTE | 2018-10-17 16:39 | NUR ---
PATIENT WAS ON 2 L NC AND O2 SAT WAS 91%; PATIENT WAS REMOVED FROM O2 FOR 30 MINS AND O2 SAT OF 91% ON RA; PATIENT WALKED FOR 6 MINS AND DID NOT DESAT BELOW 91%. PATIENT DID NOT NEED O2 AT REST OR ON EXERTION
[2018-10-17 20:19] VITALS: BP 116/77
[2018-10-18 00:05] VITALS: BP 115/63
[2018-10-18] MEDS: RT-ALBUTEROL/IPRATROPIUM 3 ML (DUONEB) VIAL INH SCH ×3 (03:04→10:34)
[2018-10-18 05:00] VITALS: BP 117/68
[2018-10-18] MEDS: inSUlin ASPART (NovoLOG) 1 UNIT/0.01 ML (CHARGE PER UNIT) SC SCH ×2 (05:55→11:43)
[2018-10-18] MEDS: predniSONE 20 MG TAB PO SCH (05:59)
--- NOTE | 2018-10-18 07:35 | Pulmonary Progress Note ---
Sepsis Event Evaluation Height, Weight, BMI Height: 5'6.00" Weight: 259lbs. 4.0oz. 117.732682wi; 41.8 BMI Method:Stated Focused Exam Lactate Level 10/16/18 18:43: Lactic Acid Level 4.01*H 10/17/18 00:25: Lactic Acid Level 2.00 10/17/18 05:50: Lactic Acid Level 1.68 Exam Exam Vital Signs Date Time Temp Pulse Resp B/P (MAP) Pulse Ox O2 Delivery O2 Flow Rate FiO2 10/18/18 07:10 93 Room Air 10/18/18 05:00 96.0 79 20 117/68 (84) 94 Room Air 10/18/18 03:04 91 Room Air 10/18/18 01:00 89 10/18/18 00:05 96.9 105 18 115/63 (80) 93 Room Air 10/17/18 23:23 94 Room Air 10/17/18 20:41 Room Air 10/17/18 20:19 96.3 101 20 116/77 (90) 93 Room Air 10/17/18 19:04 92 Room Air 10/17/18 19:00 92 10/17/18 16:37 91 2.00 10/17/18 15:57 96.4 103 16 124/62 (82) 91 Room Air 10/17/18 14:21 95 Nasal Cannula 2.00 10/17/18 13:00 98 10/17/18 12:00 97.0 96 20 134/85 (101) 95 Nasal Cannula 3.00 10/17/18 11:22 95 Nasal Cannula 2.00 10/17/18 08:00 Nasal Cannula 2.00 10/17/18 08:00 97.6 94 18 138/78 (98) 92 Nasal Cannula 3.00 I & O 10/18/18 07:00 Intake Total 2630 ml Output Total 1900 ml Balance 730 ml Height & Weight Height: 5'6.00" Weight: 259lbs. 4.0oz. 117.427228xp; 41.8 BMI Method:Stated General Appearance: No Apparent Distress, WD/WN, Anxious, Obese HEENT: PERRL/EOMI, Pharynx Normal, Moist Mucous Membranes Neck: Normal Inspection, Non Tender, Supple; No Thyromegaly Respiratory: No Accessory Muscle Use, No Respiratory Distress; No Crackles, No Decreased Breath Sounds, No Rhonci; Wheezing (diffuse expiratory and inspiratory wheezing) Cardiovascular: Regular Rate, Rhythm, No Edema, No Murmur Capillary Refill: Less Than 3 Seconds Gastrointestinal: normal bowel sounds, non tender, soft Extremity: Normal Inspection, Non Tender, No Pedal Edema Neurologic/Psychiatric: Alert, Oriented x3, No Motor/Sensory Deficits Skin: Normal Color, Warm/Dry Lymphatic: No Adenopathy Results Lab Laboratory Tests 10/16/18 10:00 10/17/18 05:50 Assessment/Plan Assessment/Plan Acute bronchitis vs asthma -Currently on 3 liters of oxygen -CT chest reviewed -CXR- repeat -Needs out pt testing -SVNs -Prednisone taper -Monitor -RVP - Pending -repeat labs Hypoxia -pt may need home 02 Atelectasis -IS KIM ELIZONDO DO Oct 18, 2018 07:35
[2018-10-18 08:00] VITALS: BP 101/71
[2018-10-18] MEDS: LIDOCAINE 4% (SALONPAS) PATCH TOP SCH (08:48)
[2018-10-18 08:56] LABS: ALANINE AMINOTRANSFERASE 49 U/L (0-55); ALKALINE PHOSPHATASE 134 U/L (40-136); BILIRUBIN,TOTAL 0.3 MG/DL (0.1-1.0); BUN/CREATININE RATIO 17; CALCIUM 8.9 MG/DL (8.5-10.1); CARBON DIOXIDE 23 MMOL/L (21-32); CHLORIDE 105 MMOL/L (98-107); CREATININE SERUM 0.71 MG/DL (0.60-1.30); GFR ESTIMATED > 60; GLUCOSE 87 MG/DL (70-105); MAGNESIUM 1.9 MG/DL (1.6-2.4); PHOSPHORUS 3.4 MG/DL (2.3-4.7); POTASSIUM 3.5 MMOL/L (3.6-5.0); SODIUM 142 MMOL/L (135-145); TOTAL PROTEIN 6.7 GM/DL (6.4-8.2)
--- NOTE | 2018-10-18 09:04 | NUR ---
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 She said they painted throughout the evening in preparation for her return home. She showed me pictures of the painting progress they sent to her phone. She said her mother gave them leftover paint from a home improvement job, and even though the pt does not like the color she is also not bothered by it because she appreciates her family making caring efforts to support her. The pt also gladly reported that her successfully repaired their only vehicle, and each member of the household is contributing in some way to improve their environment by making repairs, cleaning, painting, and seeking employment.
[2018-10-18] MEDS ORDERED: PRED10TA22 PO (09:07)
[2018-10-18] MEDS ORDERED: LEVO750T39 PO (09:07)
[2018-10-18] MEDS ORDERED: RT-ALBUINH IH (09:07)
[2018-10-18] MEDS ORDERED: MONT10TA21 PO (09:07)
[2018-10-18] MEDS ORDERED: FLUT1DIS26 IH (09:07)
--- NOTE | 2018-10-18 09:15 | Discharge Inst-Simple/Standard ---
Discharge Inst-Standard Discharge Medications New, Converted or Re-Newed RX: Transmitted to Pharmacy Patient Instructions/Follow Up Plan of Care/Instructions/FU: Please continue to take your medications as written. Please follow up with Dr Graff and your PCP to follow up this hospital stay. Activity as Tolerated: Yes Discharge Diet: No Restrictions Return to The Hospital For: shortness of breath, difficulty breathing, cough, chest pain, if you feel you are getting worse. LLOYD COY MD Oct 18, 2018 9:12 am
--- NOTE | 2018-10-18 09:37 | Discharge Summary ---
Diagnosis/Chief Complaint Date of Admission Oct 15, 2018 at 9:37 pm Date of Discharge Discharge Date: Oct 18, 2018 Admission Diagnosis reactive airway disease with wheezing with acute exacerbation Primary Care No,Local Physician Discharge Diagnosis (1) Reactive airway disease with wheezing with acute exacerbation Status: Acute (2) Steroid-induced hyperglycemia Status: Acute (3) Elevated LFTs Status: Acute (4) Morbid obesity Status: Chronic Discharge Summary Procedures/Consulations Pulm: Prerna Discharge Physical Exam Allergies: Coded Allergies: hydroxyzine (Unverified Allergy, Severe, 10/15/18) topiramate (Unverified Allergy, Severe, 10/15/18) fluticasone (Unverified Allergy, Intermediate, 10/15/18) montelukast (Unverified Allergy, Intermediate, 10/15/18) salmeterol (Unverified Allergy, Intermediate, 10/15/18) Sulfa (Sulfonamide Antibiotics) (Verified Allergy, Unknown, 10/15/18) Vitals & I&Os Vital Signs Date Time Temp Pulse Resp B/P (MAP) Pulse Ox O2 Delivery O2 Flow Rate FiO2 10/18/18 10:35 91 Room Air 10/18/18 08:00 99.0 95 20 101/71 (81) 10/17/18 16:37 2.00 10/16/18 00:15 21 General Appearance: No Apparent Distress, WD/WN Respiratory: Lungs Clear, No Respiratory Distress Cardiovascular: Regular Rate, Rhythm, No Murmur Gastrointestinal: Normal Bowel Sounds, Soft Neurologic/Psychiatric: Alert, Oriented x3 Hospital Course Patient is a 47-year-old female with a history of reactive airway disease admitted for acute exacerbation. She was treated with steroid-induced small-volume nebulizers and oxygen. She responded well and had an uneventful hospital stay. She was weaned off of oxygen and ambulatory testing was done that revealed no oxygen requirement. She is follow-up with her primary care doctor in [address] Graff. She was also referred to pulmonary rehabilitation. She was discharged home in stable condition. Labs (last 24 hrs) Microbiology 10/16/18 Influenza Types A,B Antigen (KARISHMA) - Final, Complete 10/15/18 Urine Culture - Final, Complete NO GROWTH Patient resulted labs reviewed. Pending Labs Imaging: Reviewed Imaging Films, Reviewed Imaging Report Discussion & Recommendations Discharge Planning: >30 minutes discharge planning Discharge Home Medications: Active Scripts Active Proair Hfa (Albuterol Sulfate) 1 Puff Puff 2 Puff IH Q4H 1 PUFF = 90 MCG Advair 250-50 Diskus (Fluticasone/Salmeterol) 1 Each Blst.w.dev 1 Each IH BID Singulair (Montelukast Sodium) 10 Mg Tablet 10 Mg PO HS Prednisone 10 Mg Tab.ds.pk 10 Mg PO DAILY Take 6 tabs(60mg)daily,decrease by 1 tab(10MG)daily. Levofloxacin 750 Mg Tablet 750 Mg PO DAILY@1100 Reported Aleve (Naproxen Sodium) 220 Mg Capsule 220-880 Mg PO Q8H PRN Zantac 75 (Ranitidine HCl) 75 Mg Tablet 75 Mg PO DAILY PRN Benzonatate 100 Mg Capsule 100 Mg PO Q8H PRN Emgality (Galcanezumab-Gnlm) 120 Mg/1 Ml Pen.injctr 120 Mg SQ MONTHLY Buspirone HCl 10 Mg Tablet 20 Mg PO HS Rosuvastatin Calcium 40 Mg Tablet 40 Mg PO DAILY Promethazine Tablet (Promethazine HCl) 25 Mg Tablet 25 Mg PO DAILY PRN Amitriptyline HCl 25 Mg Tablet 25 Mg PO HS Tramadol HCl 50 Mg Tablet 50 Mg PO Q8H PRN Instructions to patient/family Please see electronic discharge instructions given to patient. Clinical Quality Measures DVT/VTE Risk/Contraindication: Risk Factor Score Per Nursin RFS Level Per Nursing on Admit: 3=High Problem Qualifiers (1) Reactive airway disease with wheezing with acute exacerbation: Qualified Codes: J45.901 - Unspecified asthma with (acute) exacerbation LLOYD COY MD Oct 18, 2018 09:37
--- NOTE | 2018-10-18 10:09 | Diagnostic Imaging Report ---
INDICATION: Shortness of breath. Comparison made with prior examination from 10/15/18. FINDINGS: The heart size is normal. There is minimal bibasilar subsegmental atelectasis and/or pneumonitis. There is no pleural effusion or pneumothorax. The mediastinum is unremarkable. IMPRESSION: Minimal bibasilar subsegmental atelectasis and/or pneumonitis. Dictated by: Dictated on workstation # [id number]
[2018-10-18] MEDS: LEVOFLOXACIN 750 MG TAB (LEVAQUIN) PO SCH (11:19)
--- NOTE | 2018-10-18 11:57 | NUR ---
INSTRUCTIONS GIVEN AND REVIEWED AND VERBALIZED UNDERSTANDING. DC'D PER WC WITH SO TO HOME. F/U APPT WITH DR. ELIZONDO GIVEN TO PT.
== END 2018-10-18 11:10 | disposition home or self-care (01) ==
LOC: ER 20:18 → 4TH 21:37 → UNDOADMOB 21:37 → 4TH 22:45 → UNDODISOB 10-18 11:59
PROVIDERS: ADMIT Internal Medicine; ATTEND Internal Medicine
DX: J45.901 Unspecified asthma with (acute) exacerbation (principal); G43.911 Migraine, unspecified, intractable, with status migrainosus; M79.7 Fibromyalgia; M41.9 Scoliosis, unspecified; G89.29 Other chronic pain; M54.9 Dorsalgia, unspecified; R73.9 Hyperglycemia, unspecified; R94.5 Abnormal results of liver function studies; F31.9 Bipolar disorder, unspecified; F17.210 Nicotine dependence, cigarettes, uncomplicated; E66.01 Morbid (severe) obesity due to excess calories; Z68.41 Body mass index [BMI] 40.0-44.9, adult; Z88.2 Allergy status to sulfonamides; Z88.8 Allergy status to other drugs, medicaments and biological substances; Z79.899 Other long term (current) drug therapy
CPT/HCPCS: 36415; 71045; 71260; 76705; 80048; 80053; 81000; 82962; 83605; 83735; 83880; 84100; 84484; 84703; 85025; 87088; 87631; 87804; 93005; 94640; 94644; 94760; 94761; G0378

== ENCOUNTER 2020-03-18 17:49 | Emergency (ER) | payer SELFPAY ==
[~2020-03-18] VITALS: Ht 167.7 cm; Wt 114.8 kg
[~2020-03-18 17:49] MED LIST: AMIT25TA9 PO; BENZ-36 PO; BUSP10TA95 PO; BUSP5TAB59 PO; DOXY100C42 PO; FLUT1DIS26 IH; GALC100S SQ; GALC120P SQ; LEVO750T39 PO; MONT10TA21 PO; NAPR220C11 PO; PRD20T PO; PRED10TA22 PO; PROM25TA14 PO; RANI-324 PO; ROSU40TA23 PO; RT-ALBUINH IH; TRM50T PO
[2020-03-18] MEDS ORDERED: ALBUTEROL/IPRATROP (COMBIVENT RESPIMAT) 4 GM INHALER ONE (18:14)
[2020-03-18] MEDS ORDERED: ADVAIR HFA 115/21 MCG INHALER 8 GM IH ONE (18:14)
[2020-03-18 18:19] LABS: BILIRUBIN,URINE NEGATIVE (NEGATIVE); CLARITY,URINE SL CLOUDY; COLOR,URINE YELLOW; GLUCOSE, URINE (UA) NEGATIVE (NEGATIVE); KETONES,URINE TRACE (NEGATIVE); LEUKOCYTE ESTERASE ,URINE 1+ (NEGATIVE); NITRITE,URINE POSITIVE (NEGATIVE); PH,URINE 5.5 (5-9); PROTEIN,URINE 1+ (NEGATIVE)
--- NOTE | 2020-03-18 18:25 | ED Respiratory ---
General Stated Complaint: COUGH/SOA Source: patient History of Present Illness Date Seen by Provider: Mar 18, 2020 Time Seen by Provider: 18:02 Initial Comments PT ARRIVES VIA POV FROM HOME C/O NON-PRODUCTIVE COUGH AND SHORTNESS OF BREATH X 1 WEEK CHEST TIGHTNESS DUE TO COUGH NO FEVER/SWEATS/CHILLS NO SWELLING IN LEGS/ FEET OR PAIN IN CALVES HAS HEADACHE DUE TO COUGH HAS NAUSEA DUE TO COUGH, NO VOMITING, NO DIARRHEA NO BODY ACHES NO LOSS OF TASTE OR SMELL SYMPTOMS NO DIFFERENT TODAY IN ANY WAY HAS NOT SOUGHT CARE UNTIL TONIGHT HAS NOT TAKEN ANYTHING FOR SYMPTOMS AT ANY TIME PT STATES SHE HAS "LUNG DISEASE" AND "BONE DISEASE"--CANNOT ELABORATE, OTHER THAN "MY LEFT LUNG SHUT DOWN A FEW YEARS AGO" AND SHE HAS HAD RESPIRATORY FAILURE--ADMITTED HERE IN 2019 BUT HAS NEVER FOLLOWED UP WITH ANYONE SINCE THAT HOSPITALIZATION PT CONTINUES TO SMOKE --WAS 1 PPD, RECENTLY <1/2 PPD SINCE SHE HAS BEEN ILL PT DOES NOT HAVE ANY INHALERS OR NEBULIZER NO KNOWN SICK CONTACTS OR EXPOSURE TO COVID PT DOES NOT WORK PT LIVES WITH , SON, SON'S GIRLFRIEND, [id number] AND HIS GRANDCHILD. PCP: NONE--HAS NOT SEEN A DR SINCE SHE WAS ADMITTED HERE IN 2019 FOR RESPIRATORY PROBLEMS Allergies and Home Medications Allergies Coded Allergies: hydroxyzine (Unverified Allergy, Severe, 10/15/18) topiramate (Unverified Allergy, Severe, 10/15/18) fluticasone (Unverified Allergy, Intermediate, 10/15/18) montelukast (Unverified Allergy, Intermediate, 10/15/18) salmeterol (Unverified Allergy, Intermediate, 10/15/18) Sulfa (Sulfonamide Antibiotics) (Verified Allergy, Unknown, 10/15/18) Home Medications Albuterol Sulfate 1 Puff Puff, 2 PUFF IH Q4H 1 PUFF = 90 MCG Prescribed by: LLOYD COY on 10/18/18 09 Amitriptyline HCl 25 Mg Tablet, 25 MG PO HS, (Reported) Azithromycin 500 Mg Tablet, 500 MG PO DAILY Prescribed by: NIKHIL TINEO on 03/18/201917 Benzonatate 100 Mg Capsule, 100 MG PO Q8H PRN for COUGH, (Reported) Benzonatate 100 Mg Capsule, 200 MG PO TID Prescribed by: NIKHIL TINEO on 03/18/201917 Budesonide 180 Mcg Aer.pow.ba, 180 MCG IH BID Prescribed by: NIKHIL TINEO on 03/18/201917 Buspirone HCl 10 Mg Tablet, 20 MG PO HS, (Reported) Cefdinir 300 Mg Capsule, 300 MG PO BID Prescribed by: NIKHIL TINEO on 03/18/201917 Fluticasone/Salmeterol 1 Each Blst.w.dev, 1 EACH IH BID Prescribed by: LLOYD COY on 10/18/18906 Galcanezumab-Gnlm 120 Mg/1 Ml Pen.injctr, 120 MG SQ MONTHLY, (Reported) Levofloxacin 750 Mg Tablet, 750 MG PO DAILY@1100 Prescribed by: LLOYD COY on 10/18/18906 Methylprednisolone 4 Mg Tab.ds.pk, 4 MG PO UD PER DOSE PACK INSTRUCTIONS Prescribed by: NIKHIL TINEO on 03/18/201917 Metronidazole 500 Mg Tablet, 500 MG PO QID Prescribed by: NIKHIL TINEO on 03/18/201917 Montelukast Sodium 10 Mg Tablet, 10 MG PO HS Prescribed by: LLOYD COY on 10/18/18906 Naproxen Sodium 220 Mg Capsule, 220-880 MG PO Q8H PRN for PAIN-MILD, (Reported) Prednisone 10 Mg Tab.ds.pk, 10 MG PO DAILY Take 6 tabs(60mg)daily,decrease by 1 tab(10MG)daily. Prescribed by: LLOYD COY on 10/18/18906 Promethazine HCl 25 Mg Tablet, 25 MG PO DAILY PRN for NAUSEA/VOMITING-2ND LINE, (Reported) Promethazine/Dextromethorphan 473 Ml Syrup, 5 ML PO Q4H Prescribed by: NIKHIL TINEO on 03/18/201917 Ranitidine HCl 75 Mg Tablet, 75 MG PO DAILY PRN for HEARTBURN, (Reported) Rosuvastatin Calcium 40 Mg Tablet, 40 MG PO DAILY, (Reported) Tramadol HCl 50 Mg Tablet, 50 MG PO Q8H PRN for PAIN-MODERATE, (Reported) Patient Home Medication List Home Medication List Reviewed: Yes Review of Systems Review of Systems Constitutional: no symptoms reported; No chills, No diaphoresis, No fever EENTM: no symptoms reported Respiratory: see HPI, cough; No phlegm; short of breath, wheezing Cardiovascular: see HPI, chest pain; No edema, No palpitations, No syncope Gastrointestinal: No abdominal pain, No diarrhea; nausea; No vomiting Genitourinary: no symptoms reported Musculoskeletal: no symptoms reported Skin: no symptoms reported Psychiatric/Neurological: See HPI, Headache Hematologic/Lymphatic: No Symptoms Reported Immunological/Allergic: no symptoms reported Past Pexeskq-Bbfztj-Xieyiv Hx Past Med/Social Hx: Reviewed and Corrections made Patient Social History Alcohol Use: Rarely Uses Alcohol Beverage of Choice: Wine Drug of Choice: DENIES Smoking Status: Current Everyday Smoker (1 PPD) Type Used: Cigarettes Recent Hopitalizations: No Immunizations Up To Date PED Vaccines UTD: No Date of Pneumonia Vaccine: Sep 22, 2008 Seasonal Allergies Seasonal Allergies: No Past Medical History Surgeries: Yes (BILATERAL CARPAL TUNNEL, RIGHT ELBOW/ULNAR NERVE RELEASE?) Gallbladder, Orthopedic, Tubal Ligation Respiratory: Yes ("REACTIVE AIRWAY DZ" ; RESP FAILURE) Chronic Bronchitis Cardiac: No Neurological: Yes Headaches /Migraines : No (PERIMENOPAUSAL--COUPLE OF PERIODS SINCE 2019) 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 SOCIAL HISTORY: -ETOH--RAARE USE -DRUGS--DENIES USE, BUT UDS + FOR THC, TRICYCLICS -SMOKES 1 PPD Physical Exam Vital Signs - First Documented 03/18/20 18:00 Temp 37.3 Pulse 140 Resp 30 B/P (MAP) 167/108 (127) Pulse Ox 100 O2 Delivery Room Air Capillary Refill : Height: 5'6.00" Weight: 259lbs. 4.0oz. [phone]; 41.8 BMI Method:Stated General Appearance: WD/WN, no apparent distress, obese, other (FREQUENT, TIGHT, DRY COUGH) HEENT: PERRL/EOMI, normal ENT inspection Neck: normal inspection Respiratory: no respiratory distress, no accessory muscle use, other (DIFFUSE EXPIRATORY WHEEZING BILATERALLY) Cardiovascular: normal peripheral pulses, no edema, no JVD, no murmur, tachycardia Gastrointestinal: non tender, soft Extremities: normal inspection, no pedal edema, no calf tenderness, normal capillary refill Neurologic/Psychiatric: sports lawyer II-XII nml as tested, no motor/sensory deficits, alert, normal mood/affect, oriented x 3 Skin: normal color, warm/dry Focused Exam Lactate Level 03/18/20 18:10: Lactic Acid Level 2.18*H Lactic Acid Level Laboratory Tests Test 03/18/20 18:10 Lactic Acid Level 2.18 MMOL/L (0.50-2.00) *H Progress/Results/Core Measures Suspected Sepsis SIRS Temperature: Pulse: Respiratory Rate: Laboratory Tests 03/18/20 18:10: White Blood Count 11.5H Blood Pressure / Mean: 03/18/20 18:10: Lactic Acid Level 2.18*H Laboratory Tests 03/18/20 18:10: Creatinine 0.81, INR Comment 0.9, Platelet Count 313, Total Bilirubin 0.4 Results/Orders Lab Results Laboratory Tests Test 03/18/20 18:04 03/18/20 18:10 Range/Units Urine Color YELLOW Urine Clarity SL CLOUDY Urine pH 5.5 5-9 Urine Specific [place] >=1.030 1.016-1.022 Urine Protein 1+ H NEGATIVE Urine Glucose (UA) NEGATIVE NEGATIVE Urine Ketones TRACE H NEGATIVE Urine Nitrite POSITIVE H NEGATIVE Urine Bilirubin NEGATIVE NEGATIVE Urine Urobilinogen 0.2 < = 1.0 MG/DL Urine Leukocyte Esterase 1+ H NEGATIVE Urine RBC (Auto) NEGATIVE NEGATIVE Urine RBC NONE /HPF Urine WBC 10-25 H /HPF Urine Squamous Epithelial Cells 25-50 H /HPF Urine Crystals NONE /LPF Urine Bacteria MODERATE H /HPF Urine Casts NONE /LPF Urine Mucus MODERATE H /LPF Urine Trichomonas FEW H /HPF Urine Culture Indicated YES Urine Opiates Screen NEGATIVE NEGATIVE Urine Oxycodone Screen NEGATIVE NEGATIVE Urine Methadone Screen NEGATIVE NEGATIVE Urine Propoxyphene Screen NEGATIVE NEGATIVE Urine Barbiturates Screen NEGATIVE NEGATIVE Ur Tricyclic Antidepressants Screen POSITIVE H NEGATIVE Urine Phencyclidine Screen NEGATIVE NEGATIVE Urine Amphetamines Screen NEGATIVE NEGATIVE Urine Methamphetamines Screen NEGATIVE NEGATIVE Urine Benzodiazepines Screen NEGATIVE NEGATIVE Urine Cocaine Screen NEGATIVE NEGATIVE Urine Cannabinoids Screen POSITIVE H NEGATIVE Coronavirus 2019 ([place]) Negative Negative White Blood Count 11.5 H 4.3-11.0 10^3/uL Red Blood Count 4.95 3.80-5.11 10^6/uL Hemoglobin 15.5 11.5-16.0 g/dL Hematocrit 46 35-52 % Mean Corpuscular Volume 94 80-99 fL Mean Corpuscular Hemoglobin 31 25-34 pg Mean Corpuscular Hemoglobin Concent 33 32-36 g/dL Red Cell Distribution Width 12.5 10.0-14.5 % Platelet Count 313 130-400 10^3/uL Mean Platelet Volume 11.9 9.0-12.2 fL Immature Granulocyte % (Auto) 0 % Neutrophils (%) (Auto) 66 42-75 % Lymphocytes (%) (Auto) 27 12-44 % Monocytes (%) (Auto) 6 0-12 % Eosinophils (%) (Auto) 2 0-10 % Basophils (%) (Auto) 0 0-10 % Neutrophils # (Auto) 7.6 1.8-7.8 10^3/uL Lymphocytes # (Auto) 3.1 1.0-4.0 10^3/uL Monocytes # (Auto) 0.6 0.0-1.0 10^3/uL Eosinophils # (Auto) 0.2 0.0-0.3 10^3/uL Basophils # (Auto) 0.0 0.0-0.1 10^3/uL Immature Granulocyte # (Auto) 0.0 0.0-0.1 10^3/uL Erythrocyte Sedimentation Rate 15 0-20 MM/HR Prothrombin Time 12.1 L 12.2-14.7 SEC INR Comment 0.9 0.8-1.4 Activated Partial Thromboplast Time 27 24-35 SEC D-Dimer 0.59 H 0.00-0.49 UG/ML Sodium Level 140 135-145 MMOL/L Potassium Level 3.4 L 3.6-5.0 MMOL/L Chloride Level 102 98-107 MMOL/L Carbon Dioxide Level 26 21-32 MMOL/L Anion Gap 12 5-14 MMOL/L Blood Urea Nitrogen 11 7-18 MG/DL Creatinine 0.81 0.60-1.30 MG/DL Estimat Glomerular Filtration Rate > 60 BUN/Creatinine Ratio 14 Glucose Level 129 H 70-105 MG/DL Lactic Acid Level 2.18 *H 0.50-2.00 MMOL/L Calcium Level 9.9 8.5-10.1 MG/DL Corrected Calcium 8.5-10.1 MG/DL Magnesium Level 2.1 1.6-2.4 MG/DL Total Bilirubin 0.4 0.1-1.0 MG/DL Aspartate Amino Transf (AST/SGOT) 38 H 5-34 U/L Alanine Aminotransferase (ALT/SGPT) 53 0-55 U/L Alkaline Phosphatase 173 H 40-136 U/L Lactate Dehydrogenase 217 125-220 U/L Total Creatine Kinase 74 29-168 U/L Creatine Kinase MB 1.9 <6.6 NG/ML Myoglobin 42.8 10.0-92.0 NG/ML Troponin I < 0.028 <0.028 NG/ML C-Reactive Protein High Sensitivity 0.65 H 0.00-0.50 MG/DL B-Type Natriuretic Peptide < 10.0 <100.0 PG/ML Total Protein 8.2 6.4-8.2 GM/DL Albumin 4.7 H 3.2-4.5 GM/DL Procalcitonin 0.01 <0.10 NG/ML Serum Test, Qualitative NEGATIVE NEGATIVE Micro Results Microbiology 03/18/20 Influenza Types A,B Antigen ([facility]ARISH[facility]) - Final, Complete My Orders Orders - NIKHIL TINEO DO Influenza A And B Antigens (03/18/20 18:00) Chest 1 View, Ap/Pa Only (03/18/20 18:00) Covid 19 Inhouse Test (03/18/20 18:00) Coronavirus Sars-Cov-2 So 2018 (03/18/20 18:00) Ed Iv/Invasive Line Start (03/18/20 18:04) Ekg Tracing (03/18/20 18:04) Monitor-Rhythm Ecg Trace Only (03/18/20 18:04) BNP (03/18/20 18:04) Cbc With Automated Diff (03/18/20 18:04) Comprehensive Metabolic Panel (03/18/20 18:04) Creatine Kinase (03/18/20 18:04) Creatine Kinase Mb (03/18/20 18:04) Hs C Reactive Protein (03/18/20 18:04) Fibrin Degradation Products (03/18/20 18:04) Drug Screen Stat (Urine) (03/18/20 18:04) Hcg,Qualitative Serum (03/18/20 18:04) Lactic Acid Analyzer (03/18/20 18:04) Magnesium (03/18/20 18:04) Procalcitonin (Pct) (03/18/20 18:04) Protime With Inr (03/18/20 18:04) Partial Thromboplastin Time (03/18/20 18:04) Ua Culture If Indicated (03/18/20 18:04) Blood Culture (03/18/20 18:04) Erythrocyte Sedimentation Rate (03/18/20 18:04) Myoglobin Serum (03/18/20 18:04) Troponin I (03/18/20 18:04) LDH (03/18/20 18:04) Dexamethasone Injection (Decadron Injec (03/18/20 18:14) Fluticasone/Salmeterol (Advair Hf (03/18/20 18:14) Albuterol/Ipratropium Inhaler (Combivent (03/18/20 18:14) Dexamethasone Injection (Decadron Inje (03/18/20 18:30) Albuterol/Ipratropium Inhaler (Combivent (03/18/20 21:00) Rt Request For Service (03/18/20 18:17) Urine Culture (03/18/20 18:04) Ceftriaxone For Iv Use (Rocephin For I (03/18/20 19:00) Azithromycin Tablet (Zithromax Tablet) (03/18/20 19:00) Medications Given in ED Current Medications Medications Dose Ordered Sig/[place] Route Start Time Stop Time Status Last Admin Dose Admin Albuterol/ Ipratropium 1 PUFF QID ONCE IH 03/18/20 21:00 03/18/20 21:01 DC 03/18/20 18:22 1 GM Azithromycin 500 mg ONCE ONCE PO 03/18/20 19:00 03/18/20 19:01 DC 03/18/20 19:16 500 MG Ceftriaxone Sodium 1000 mg/ Sterile Water 10 ml @ 200 mls/hr ONCE ONCE IV 03/18/20 19:00 03/18/20 19:02 DC 03/18/20 19:16 200 MLS/HR Dexamethasone Sodium Phosphate 6 mg ONCE ONCE IV 03/18/20 18:30 03/18/20 18:31 DC 03/18/20 18:23 6 MG Vital Signs/I&O 03/18/20 03/18/20 18:00 19:43 Temp 37.3 37.3 Pulse 140 107 Resp 30 20 B/P (MAP) 167/108 (127) 127/86 (127) Pulse Ox 100 95 O2 Delivery Room Air Capillary Refill : Progress Note : Progress Note PLACED IN ISOLATION ROOM PPE WORN AT ALL TIMES COVID-19 TESTING PERFORMED PT ADVISED OF NEED FOR QUARANTINE O2 SAT 99% ON ROOM AIR ON ARRIVAL GIVEN DECADRON IV AND COMBIVENT INHALER WITH SPACER TX WITH IMPROVEMENT IN SYMPTOMS NO DETERIORATION IN CONDITION DURING ER STAY VITALS STABLE ECG Initial ECG Impression Date: Mar 18, 2020 Initial ECG Impression Time: 18:33 Initial ECG Rate: 101 Initial ECG Rhythm: S.Tach Diagnostic Imaging Comments CXR--NO ACUTE PROCESS, PER RADIOLOGIST REPORT AT 1904 Reviewed: Reviewed by Me Departure Impression Primary Impression: Acute exacerbation of chronic bronchitis Additional Impressions: Personal history of covid-19 UTI (urinary tract infection) Trichomonas infection Marijuana use Disposition: HOME, SELF-CARE Condition: Improved Departure-Patient Inst. Referrals: NO,LOCAL PHYSICIAN (PCP/Family) Primary Care Physician Patient Instructions: Acute Bronchitis, Adult (DC), Chronic Bronchitis (DC), Trichomoniasis (DC), How to Use a Spacer, Coronavirus Disease 2019 (COVID-19) Overview, How to Use Your Metered Dose Inhaler (Adults) Add. Discharge Instructions: LOTS OF CLEAR LIQUIDS TYLENOL AND MOTRIN NEEDED FOR PAIN OR FEVER NO MARIJUANA AND NO TOBACCO USE COMBIVENT INHALER WITH SPACER--2 PUFFS EVERY 4 HOURS NEEDED FOLLOW UP WITH OF CHOICE IN 4-5 DAYS IF NO BETTER, RETURN TO ER IF WORSE IF YOU ARE STILL HAVING SYMPTOMS, YOU MAY NEED TO BE RE-TESTED FOR COVID-19 QUARANTINE YOURSELF AND ALL HOUSEHOLD MEMBERS FOR 2 WEEKS OR UNTIL CLEARED BY DR OR HEALTH DEPT. Scripts Budesonide (Pulmicort Flexhaler) 180 Mcg Aer.pow.ba 180 MCG IH BID, #1 EACH Prov: NIKHIL TINEO DO 03/18/20 Promethazine/Dextromethorphan (Promethazine-Dm Syrup) 473 Ml Syrup 5 ML PO Q4H for Cough, #200 ML Prov: NIKHIL TINEO DO 03/18/20 Benzonatate (TESSALON PERLES) 100 Mg Capsule 200 MG PO TID, #50 CAP Prov: NIKHIL TINEO DO 03/18/20 Metronidazole (Flagyl) 500 Mg Tablet 500 MG PO QID, #40 TAB Prov: NIKHIL TINEO DO 03/18/20 Azithromycin (Zithromax) 500 Mg Tablet 500 MG PO DAILY for 5 Days, #5 TAB Prov: NIKHIL TINEO DO 03/18/20 Cefdinir (Cefdinir) 300 Mg Capsule 300 MG PO BID, #20 CAP Prov: NIKHIL TINEO DO 03/18/20 Methylprednisolone (Medrol) 4 Mg Tab.ds.pk 4 MG PO UD for 6 Days, #21 PKG PER DOSE PACK INSTRUCTIONS Prov: NIKHIL TINEO DO 03/18/20 Work/School Note: Local Medical Staff Listing NIKHIL TINEO DO Mar 18, 2020 18:25
[2020-03-18 18:27] LABS: BACTERIA,URINE MODERATE /HPF; SQUAMOUS EPITHELIAL CELL,UR 25-50 /HPF; TRICHOMONAS,URINE FEW /HPF
[2020-03-18 18:28] LABS: AMPHETAMINE SCREEN, URINE NEGATIVE (NEGATIVE); BARBITURATE SCREEN URINE NEGATIVE (NEGATIVE); BENZODIAZEPINES SCREEN URINE NEGATIVE (NEGATIVE); CANNABINOID SCREEN, URINE POSITIVE (NEGATIVE); COCAINE SCREEN URINE NEGATIVE (NEGATIVE); METHADONE STAT NEGATIVE (NEGATIVE); METHAMPHETAMINE SCREEN URINE S NEGATIVE (NEGATIVE); OPIATE SCREEN URINE NEGATIVE (NEGATIVE); OXYCODONE STAT NEGATIVE (NEGATIVE); PROPOXYPHENE STAT NEGATIVE (NEGATIVE); TRICYCLIC ANTIDEPRESSANTS SCRE POSITIVE (NEGATIVE)
[2020-03-18 18:29] LABS: BASOPHILS % (AUTO) 0 % (0-10); EOSINOPHILS # (AUTO) 0.2 10^3/uL (0.0-0.3); EOSINOPHILS % (AUTO) 2 % (0-10); HEMATOCRIT 46 % (35-52); HEMOGLOBIN 15.5 g/dL (11.5-16.0); LYMPHOCYTES # (AUTO) 3.1 10^3/uL (1.0-4.0); LYMPHOCYTES % (AUTO) 27 % (12-44); MEAN CORPUSCULAR HEMOGLOBIN 31 pg (25-34); MEAN CORPUSCULAR HGB CONC 33 g/dL (32-36); MEAN CORPUSCULAR VOLUME 94 fL (80-99); MEAN PLATELET VOLUME 11.9 fL (9.0-12.2); MONOCYTES # (AUTO) 0.6 10^3/uL (0.0-1.0); MONOCYTES % (AUTO) 6 % (0-12); NEUTROPHILS # (AUTO) 7.6 10^3/uL (1.8-7.8); NEUTROPHILS % (AUTO) 66 % (42-75); PLATELET COUNT 313 10^3/uL (130-400); WHITE BLOOD COUNT 11.5 10^3/uL (4.3-11.0)
[2020-03-18 18:37] LABS: ALBUMIN 4.7 GM/DL (3.2-4.5); CHLORIDE 102 MMOL/L (98-107); POTASSIUM 3.4 MMOL/L (3.6-5.0); SODIUM 140 MMOL/L (135-145)
[2020-03-18 18:39] LABS: CALCIUM 9.9 MG/DL (8.5-10.1)
[2020-03-18 18:40] LABS: GLUCOSE 129 MG/DL (70-105); TOTAL PROTEIN 8.2 GM/DL (6.4-8.2)
[2020-03-18 18:41] LABS: CARBON DIOXIDE 26 MMOL/L (21-32)
[2020-03-18 18:42] LABS: BILIRUBIN,TOTAL 0.4 MG/DL (0.1-1.0); FIBRIN DEGRADATION PRODUCTS 0.59 UG/ML (0.00-0.49); INR 0.9 (0.8-1.4); PROTHROMBIN TIME PATIENT 12.1 SEC (12.2-14.7)
[2020-03-18 18:43] LABS: ALKALINE PHOSPHATASE 173 U/L (40-136)
[2020-03-18 18:44] LABS: CREATININE SERUM 0.81 MG/DL (0.60-1.30); GFR ESTIMATED > 60
[2020-03-18 18:45] LABS: BUN/CREATININE RATIO 14
[2020-03-18 18:46] LABS: ALANINE AMINOTRANSFERASE 53 U/L (0-55); ERYTHROCYTE SEDIMENTATION RATE 15 MM/HR (0-20); MAGNESIUM 2.1 MG/DL (1.6-2.4)
[2020-03-18 18:47] LABS: CREATINE KINASE 74 U/L (29-168)
[2020-03-18] MEDS ORDERED: CEFD300C3 PO ×2 (18:48→19:18)
[2020-03-18] MEDS ORDERED: AZIT500T PO ×2 (18:48→19:18)
[2020-03-18] MEDS ORDERED: METH4TAB PO ×2 (18:48→19:18)
[2020-03-18] MEDS ORDERED: METR500T PO ×2 (18:48→19:18)
[2020-03-18] MEDS ORDERED: BENZ100C18 PO ×2 (18:49→19:18)
[2020-03-18] MEDS ORDERED: D-ME473S11 PO ×2 (18:49→19:18)
[2020-03-18 18:54] LABS: CREATINE KINASE MB 1.9 NG/ML (<6.6)
[2020-03-18] MEDS ORDERED: AZITHROMYCIN 250 MG TAB (ZITHROMAX) PO ONE (19:00)
[2020-03-18] MEDS ORDERED: cefTRIAXone FOR IV USE 1,000 MG in WATER (STERILE) FOR INJECTION 10 ML IV ONE (19:00)
--- NOTE | 2020-03-18 19:02 | Diagnostic Imaging Report ---
INDICATION: Cough and dyspnea Single AP view of the chest is obtained with comparison made to the study of 10/18/2018. FINDINGS: Heart size and pulmonary vascularity are within normal limits, and the lungs are clear, bilaterally. There is continued elevation of the left hemidiaphragm. IMPRESSION: Unremarkable chest. Dictated by: Dictated on workstation # [id number]
[2020-03-18] MEDS ORDERED: BUDE180A IH ×2 (19:17→19:18)
[2020-03-18 19:43] VITALS: BP 127/86
[2020-03-18] MEDS ORDERED: ALBUTEROL/IPRATROP (COMBIVENT RESPIMAT) 4 GM INHALER IH ONE (21:00)
== END 2020-03-18 19:43 | disposition home or self-care (01) ==
LOC: EDUNIT# 17:49 → ER 17:51
DX: J44.1 Chronic obstructive pulmonary disease with (acute) exacerbation (principal); N39.0 Urinary tract infection, site not specified; A59.9 Trichomoniasis, unspecified; F12.90 Cannabis use, unspecified, uncomplicated; F41.9 Anxiety disorder, unspecified; F32.9 Major depressive disorder, single episode, unspecified; E66.9 Obesity, unspecified; F17.210 Nicotine dependence, cigarettes, uncomplicated; Z20.822 Contact with and (suspected) exposure to COVID-19; Z68.41 Body mass index [BMI] 40.0-44.9, adult; Z88.2 Allergy status to sulfonamides; Z88.8 Allergy status to other drugs, medicaments and biological substances; Z79.52 Long term (current) use of systemic steroids
CPT/HCPCS: 71045; 80053; 80306; 81000; 82550; 82553; 83605; 83615; 83735; 83874; 83880; 84145; 84484; 84703; 85025; 85379; 85610; 85652; 85730; 86141; 87040; 87088; 87804; 93005; 93041; 94640; 99284; U0002; 36415; 87635

== ENCOUNTER 2020-05-27 13:35 | Emergency (ER) | payer SELFPAY ==
[~2020-05-27] VITALS: Ht 167 cm; Wt 111.3 kg
[~2020-05-27 13:35] MED LIST changes: +AZIT500T PO; +BENZ100C18 PO; +BUDE180A IH; +CEFD300C3 PO; +D-ME473S11 PO; +METH4TAB PO; +METR500T PO
[2020-05-27] MEDS ORDERED: ASPIRIN 81 MG CHEW (CHILDREN'S ASA) ONE (13:36)
[2020-05-27] MEDS ORDERED: LORazepam INJ 2 MG/ML (ATIVAN) VIAL ONE (13:36)
[2020-05-27 13:53] LABS: BASOPHILS # (AUTO) 0.1 10^3/uL (0.0-0.1); BASOPHILS % (AUTO) 1 % (0-10); EOSINOPHILS # (AUTO) 0.1 10^3/uL (0.0-0.3); EOSINOPHILS % (AUTO) 1 % (0-10); HEMATOCRIT 47 % (35-52); HEMOGLOBIN 15.2 g/dL (11.5-16.0); LYMPHOCYTES # (AUTO) 2.1 10^3/uL (1.0-4.0); LYMPHOCYTES % (AUTO) 21 % (12-44); MEAN CORPUSCULAR HEMOGLOBIN 32 pg (25-34); MEAN CORPUSCULAR HGB CONC 32 g/dL (32-36); MEAN CORPUSCULAR VOLUME 98 fL (80-99); MEAN PLATELET VOLUME 12.6 fL (9.0-12.2); MONOCYTES # (AUTO) 0.7 10^3/uL (0.0-1.0); MONOCYTES % (AUTO) 7 % (0-12); NEUTROPHILS # (AUTO) 7.2 10^3/uL (1.8-7.8); NEUTROPHILS % (AUTO) 70 % (42-75); PLATELET COUNT 257 10^3/uL (130-400); WHITE BLOOD COUNT 10.3 10^3/uL (4.3-11.0)
--- NOTE | 2020-05-27 13:53 | ED Chest Pain ---
General Chief Complaint: Chest Pain Stated Complaint: SOB, ARM NUMBNESS Source: patient Exam Limitations: no limitations History of Present Illness Date Seen by Provider: May 27, 2020 Time Seen by Provider: 13:40 Initial Comments To ER by private vehicle with reports of shortness of breath bilateral arm numbness and chest tightness that began about 30 minutes ago while riding in the car. She has a history of bipolar disorder with anil. She used to see Dr. Medina amaro in [place] but when she lost her job in 2018 she lost her primary care provider. She is undergoing a lot of stress at home as well. She does smoke less than 1/2 pack of cigarettes per day. No personal history of heart disease. She was adopted and does not know family history. Timing/Duration: changing over time Severity/Quality: moderate Location: central Radiation: no radiation ASA po SHERIFF: No NTG SL SHERIFF: No Associated Symptoms: shortness of breath Allergies and Home Medications Allergies Coded Allergies: hydroxyzine (Unverified Allergy, Severe, 10/15/18) topiramate (Unverified Allergy, Severe, 10/15/18) fluticasone (Unverified Allergy, Intermediate, 10/15/18) montelukast (Unverified Allergy, Intermediate, 10/15/18) salmeterol (Unverified Allergy, Intermediate, 10/15/18) Sulfa (Sulfonamide Antibiotics) (Verified Allergy, Unknown, 10/15/18) Home Medications Albuterol Sulfate 1 Puff Puff, 2 PUFF IH Q4H 1 PUFF = 90 MCG Prescribed by: LLOYD COY on 10/18/18 0907 Amitriptyline HCl 25 Mg Tablet, 25 MG PO HS, (Reported) Azithromycin 500 Mg Tablet, 500 MG PO DAILY Prescribed by: NIKHIL TINEO on 03/18/201917 Benzonatate 100 Mg Capsule, 100 MG PO Q8H PRN for COUGH, (Reported) Benzonatate 100 Mg Capsule, 200 MG PO TID Prescribed by: NIKHIL TINEO on 03/18/201917 Budesonide 180 Mcg Aer.pow.ba, 180 MCG IH BID Prescribed by: NIKHIL TINEO on 03/18/201917 Buspirone HCl 10 Mg Tablet, 20 MG PO HS, (Reported) Cefdinir 300 Mg Capsule, 300 MG PO BID Prescribed by: NIKHIL TINEO on 03/18/201917 Fluticasone/Salmeterol 1 Each Blst.w.dev, 1 EACH IH BID Prescribed by: LLOYD COY on 10/18/18906 Galcanezumab-Gnlm 120 Mg/1 Ml Pen.injctr, 120 MG SQ MONTHLY, (Reported) Levofloxacin 750 Mg Tablet, 750 MG PO DAILY@1100 Prescribed by: LLOYD COY on 10/18/18906 Methylprednisolone 4 Mg Tab.ds.pk, 4 MG PO UD PER DOSE PACK INSTRUCTIONS Prescribed by: NIKHIL TINEO on 03/18/201917 Metronidazole 500 Mg Tablet, 500 MG PO QID Prescribed by: NIKHIL TINEO on 03/18/201917 Montelukast Sodium 10 Mg Tablet, 10 MG PO HS Prescribed by: LLOYD COY on 10/18/18906 Naproxen Sodium 220 Mg Capsule, 220-880 MG PO Q8H PRN for PAIN-MILD, (Reported) Prednisone 10 Mg Tab.ds.pk, 10 MG PO DAILY Take 6 tabs(60mg)daily,decrease by 1 tab(10MG)daily. Prescribed by: LLOYD COY on 10/18/18906 Promethazine HCl 25 Mg Tablet, 25 MG PO DAILY PRN for NAUSEA/VOMITING-2ND LINE, (Reported) Promethazine/Dextromethorphan 473 Ml Syrup, 5 ML PO Q4H Prescribed by: NIKHIL TINEO on 03/18/201917 Ranitidine HCl 75 Mg Tablet, 75 MG PO DAILY PRN for HEARTBURN, (Reported) Rosuvastatin Calcium 40 Mg Tablet, 40 MG PO DAILY, (Reported) Tramadol HCl 50 Mg Tablet, 50 MG PO Q8H PRN for PAIN-MODERATE, (Reported) Patient Home Medication List Home Medication List Reviewed: Yes Review of Systems Review of Systems Constitutional: see HPI EENTM: No Symptoms Reported Respiratory: See HPI, Shortness of Air Cardiovascular: See HPI, Chest Pain Gastrointestinal: No Symptoms Reported Genitourinary: No Symptoms Reported Musculoskeletal: no symptoms reported Skin: no symptoms reported Psychiatric/Neurological: No Symptoms Reported Endocrine: No Symptoms Reported Hematologic/Lymphatic: No Symptoms Reported Past Soupiad-Mgbled-Dnamrm Hx Patient Social History Alcohol Beverage of Choice: Wine Drug of Choice: DENIES Type Used: Cigarettes Recent Hopitalizations: No Immunizations Up To Date Tetanus Booster (TDap): Unknown PED Vaccines UTD: No Date of Pneumonia Vaccine: Sep 22, 2008 Seasonal Allergies Seasonal Allergies: No Past Medical History Surgeries: Yes (BILATERAL CARPAL TUNNEL, RIGHT ELBOW/ULNAR NERVE RELEASE?) Gallbladder, Orthopedic, Tubal Ligation Respiratory: Yes ("REACTIVE AIRWAY DZ" ; RESP FAILURE) Chronic Bronchitis Cardiac: No Neurological: Yes Headaches /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 SOCIAL HISTORY: -ETOH--RAARE USE -DRUGS--DENIES USE, BUT UDS + FOR THC, TRICYCLICS -SMOKES 1 PPD Physical Exam Vital Signs Vital Signs - First Documented 05/27/20 13:35 Temp 35.0 Pulse 117 Resp 24 B/P (MAP) 152/86 (108) Pulse Ox 100 O2 Delivery Room Air Capillary Refill : Height, Weight, BMI Height: 5'6.00" Weight: 259lbs. 4.0oz. 117.725835gr; 40.00 BMI Method:Stated General Appearance: No Apparent Distress, WD/WN, Anxious (Tearful, tachypnea. Reports tingling in both hands. Hyperventilating.) Respiratory: No Accessory Muscle Use, No Respiratory Distress Cardiovascular: Normal Peripheral Pulses, Tachycardia (Sinus tach rate of 120 oxygen saturation 99 to 100% on room air) Gastrointestinal: Normal Bowel Sounds, Non Tender, Soft Extremity: Normal Capillary Refill, Normal Inspection Neurologic/Psychiatric: Alert, Oriented x3 Skin: Normal Color Progress/Results/Core Measures Results/Orders Lab Results Laboratory Tests Test 05/27/20 13:45 Range/Units White Blood Count 10.3 4.3-11.0 10^3/uL Red Blood Count 4.82 3.80-5.11 10^6/uL Hemoglobin 15.2 11.5-16.0 g/dL Hematocrit 47 35-52 % Mean Corpuscular Volume 98 80-99 fL Mean Corpuscular Hemoglobin 32 25-34 pg Mean Corpuscular Hemoglobin Concent 32 32-36 g/dL Red Cell Distribution Width 12.5 10.0-14.5 % Platelet Count 257 130-400 10^3/uL Mean Platelet Volume 12.6 H 9.0-12.2 fL Immature Granulocyte % (Auto) 0 % Neutrophils (%) (Auto) 70 42-75 % Lymphocytes (%) (Auto) 21 12-44 % Monocytes (%) (Auto) 7 0-12 % Eosinophils (%) (Auto) 1 0-10 % Basophils (%) (Auto) 1 0-10 % Neutrophils # (Auto) 7.2 1.8-7.8 10^3/uL Lymphocytes # (Auto) 2.1 1.0-4.0 10^3/uL Monocytes # (Auto) 0.7 0.0-1.0 10^3/uL Eosinophils # (Auto) 0.1 0.0-0.3 10^3/uL Basophils # (Auto) 0.1 0.0-0.1 10^3/uL Immature Granulocyte # (Auto) 0.0 0.0-0.1 10^3/uL Prothrombin Time 12.8 12.2-14.7 SEC INR Comment 0.9 0.8-1.4 Activated Partial Thromboplast Time 26 24-35 SEC D-Dimer 0.27 0.00-0.49 UG/ML Sodium Level 138 135-145 MMOL/L Potassium Level 3.1 L 3.6-5.0 MMOL/L Chloride Level 106 98-107 MMOL/L Carbon Dioxide Level 12 L 21-32 MMOL/L Anion Gap 20 H 5-14 MMOL/L Blood Urea Nitrogen 10 7-18 MG/DL Creatinine 0.80 0.60-1.30 MG/DL Estimat Glomerular Filtration Rate > 60 BUN/Creatinine Ratio 13 Glucose Level 208 H 70-105 MG/DL Calcium Level 9.7 8.5-10.1 MG/DL Corrected Calcium 8.5-10.1 MG/DL Magnesium Level 1.8 1.6-2.4 MG/DL Total Bilirubin 0.4 0.1-1.0 MG/DL Aspartate Amino Transf (AST/SGOT) 39 H 5-34 U/L Alanine Aminotransferase (ALT/SGPT) 60 H 0-55 U/L Alkaline Phosphatase 162 H 40-136 U/L Myoglobin 18.2 10.0-92.0 NG/ML Troponin I < 0.028 <0.028 NG/ML B-Type Natriuretic Peptide < 10.0 <100.0 PG/ML Total Protein 7.7 6.4-8.2 GM/DL Albumin 4.6 H 3.2-4.5 GM/DL My Orders Orders - HAKAN PRINCE APRN Cbc With Automated Diff (05/27/20 13:48) Magnesium (05/27/20 13:48) Chest 1 View, Ap/Pa Only (05/27/20 13:48) Ekg Tracing (05/27/20 13:48) Comprehensive Metabolic Panel (05/27/20 13:48) Myoglobin Serum (05/27/20 13:48) Protime With Inr (05/27/20 13:48) Partial Thromboplastin Time (05/27/20 13:48) O2 (05/27/20 13:48) Monitor-Rhythm Ecg Trace Only (05/27/20 13:48) Lipid Panel (05/28/20 06:00) Ed Iv/Invasive Line Start (05/27/20 13:48) BNP (05/27/20 13:48) Fibrin Degradation Products (05/27/20 13:48) Troponin I (05/27/20 13:48) Promethazine Injection (Phenergan Injec (05/27/20 14:15) Medications Given in ED Current Medications Medications Dose Ordered Sig/Kaykay Route Start Time Stop Time Status Last Admin Dose Admin Aspirin 81 mg STK-MED ONCE .ROUTE 05/27/20 13:36 05/27/20 13:44 DC 05/27/20 13:46 324 MG Lorazepam 2 mg STK-MED ONCE .ROUTE 05/27/20 13:36 05/27/20 13:43 DC 05/27/20 13:46 1 MG Promethazine HCl 12.5 mg ONCE ONCE IVP 05/27/20 14:15 05/27/20 14:16 DC 05/27/20 14:09 12.5 MG Vital Signs/I&O 05/27/20 13:35 Temp 35.0 Pulse 117 Resp 24 B/P (MAP) 152/86 (108) Pulse Ox 100 O2 Delivery Room Air Departure Communication (Admissions) 151-feeling much better. Would like to go home now. Impression Primary Impression: Anxiety Disposition: HOME, SELF-CARE Condition: Stable Departure-Patient Inst. Decision time for Depature: 14:51 Referrals: PATTY TORRES BETHANY N MD GAULT, HOLLY R MD NO,LOCAL PHYSICIAN (PCP) Primary Care Physician Patient Instructions: Anxiety, Adult (DC), Chest Pain (DC) Add. Discharge Instructions: 1. Return to ER for any concerns. Follow-up with your doctor next week. All discharge instructions reviewed with patient and/or family. Voiced understanding. Scripts Lorazepam (Ativan) 1 Mg Tablet 1 MG SL BID PRN for ANXIETY for 7 Days, #10 TAB Prov: HAKAN PRINCE WHISKEY REGAUGER 05/27/20 HAKAN PRINCE APRN May 27, 2020 13:53
[2020-05-27] MEDS ORDERED: PROMETHAZINE INJ 25 MG/ML (PHENERGAN) AMP IVP ONE (14:15)
[2020-05-27 14:21] LABS: INR 0.9 (0.8-1.4); PROTHROMBIN TIME PATIENT 12.8 SEC (12.2-14.7)
[2020-05-27 14:28] LABS: ALANINE AMINOTRANSFERASE 60 U/L (0-55); ALBUMIN 4.6 GM/DL (3.2-4.5); ALKALINE PHOSPHATASE 162 U/L (40-136); BILIRUBIN,TOTAL 0.4 MG/DL (0.1-1.0); BUN/CREATININE RATIO 13; CALCIUM 9.7 MG/DL (8.5-10.1); CARBON DIOXIDE 12 MMOL/L (21-32); CHLORIDE 106 MMOL/L (98-107); GFR ESTIMATED > 60; GLUCOSE 208 MG/DL (70-105); MAGNESIUM 1.8 MG/DL (1.6-2.4); POTASSIUM 3.1 MMOL/L (3.6-5.0); SODIUM 138 MMOL/L (135-145); TOTAL PROTEIN 7.7 GM/DL (6.4-8.2)
--- NOTE | 2020-05-27 14:30 | Diagnostic Imaging Report ---
INDICATION: Chest pain. COMPARISON: 03/18/2020. FINDINGS: Heart and lungs appeared normal. No pleural pathology. Hilar and mediastinal contours are normal. IMPRESSION: Negative. Dictated by: Dictated on workstation # [id number]
[2020-05-27] MEDS ORDERED: LORA-405 SL (15:10)
[2020-05-27 15:29] VITALS: BP 126/87
== END 2020-05-27 15:28 | disposition home or self-care (01) ==
LOC: EDUNIT# 13:35 → ER 13:37
DX: F41.9 Anxiety disorder, unspecified (principal); F31.9 Bipolar disorder, unspecified; M41.9 Scoliosis, unspecified; M79.7 Fibromyalgia; E66.9 Obesity, unspecified; G43.909 Migraine, unspecified, not intractable, without status migrainosus; Z79.51 Long term (current) use of inhaled steroids; Z79.52 Long term (current) use of systemic steroids; Z88.2 Allergy status to sulfonamides; Z88.8 Allergy status to other drugs, medicaments and biological substances
CPT/HCPCS: 36415; 71045; 80053; 83735; 83874; 83880; 84484; 85025; 85379; 85610; 85730; 93005; 93041

== ENCOUNTER 2020-08-11 11:48 | Emergency (ER) | payer OTHER ==
[~2020-08-11] VITALS: Ht 167 cm; Wt 64.0 kg
[~2020-08-11 11:48] MED LIST changes: +LORA-405 SL
--- NOTE | 2020-08-11 13:27 | ED Abdominal Pain ---
General Chief Complaint: Abdominal/GI Problems Stated Complaint: ABDOMINAL PAIN R SIDE Nursing Triage Note: PT CO OF ABD PAIN SINCE 6:00PM LAST NIGHT, PT STATES HAS NAUSEA NO VOMITING, FEVERS, OR DIARRHEA Sepsis Screen: No Definite Risk Source of Information: Patient Exam Limitations: No Limitations History of Present Illness Date Seen by Provider: Aug 11, 2020 Time Seen by Provider: 13:26 Initial Comments To ER with severe right lower quadrant abdominal pain that started last night. She still has her appendix she still has both ovaries and she has a history of kidney stones. The pain is constant nothing makes it better nothing makes it worse. She is had nausea without vomiting. No appetite, last food intake was last night. No fevers or chills. Timing/Duration: 1-2 Days Severity/Quality: Moderate Location: RLQ Radiation: No Radiation Activities at Onset: None Associated Symptoms: Nausea/Vomiting Allergies and Home Medications Allergies Coded Allergies: hydroxyzine (Unverified Allergy, Severe, 10/15/18) topiramate (Unverified Allergy, Severe, 10/15/18) fluticasone (Unverified Allergy, Intermediate, 10/15/18) montelukast (Unverified Allergy, Intermediate, 10/15/18) salmeterol (Unverified Allergy, Intermediate, 10/15/18) Sulfa (Sulfonamide Antibiotics) (Verified Allergy, Unknown, 10/15/18) Home Medications Albuterol Sulfate 1 Puff Puff, 2 PUFF IH Q4H 1 PUFF = 90 MCG Prescribed by: LLOYD COY on 10/18/18 0907 Amitriptyline HCl 25 Mg Tablet, 25 MG PO HS, (Reported) Azithromycin 500 Mg Tablet, 500 MG PO DAILY Prescribed by: NIKHIL TINEO on 03/18/201917 Benzonatate 100 Mg Capsule, 100 MG PO Q8H PRN for COUGH, (Reported) Benzonatate 100 Mg Capsule, 200 MG PO TID Prescribed by: NIKHIL TINEO on 03/18/201917 Budesonide 180 Mcg Aer.pow.ba, 180 MCG IH BID Prescribed by: NIKHIL TINEO on 03/18/201917 Buspirone HCl 10 Mg Tablet, 20 MG PO HS, (Reported) Cefdinir 300 Mg Capsule, 300 MG PO BID Prescribed by: NIKHIL TINEO on 03/18/201917 Fluticasone/Salmeterol 1 Each Blst.w.dev, 1 EACH IH BID Prescribed by: LLOYD COY on 10/18/18906 Galcanezumab-Gnlm 120 Mg/1 Ml Pen.injctr, 120 MG SQ MONTHLY, (Reported) Levofloxacin 750 Mg Tablet, 750 MG PO DAILY@1100 Prescribed by: LLOYD COY on 10/18/18906 Lorazepam 1 Mg Tablet, 1 MG SL BID PRN for ANXIETY Prescribed by: HAKAN PRINCE on 05/27/20 151 Methylprednisolone 4 Mg Tab.ds.pk, 4 MG PO UD PER DOSE PACK INSTRUCTIONS Prescribed by: NIKHIL TINEO on 03/18/201917 Metronidazole 500 Mg Tablet, 500 MG PO QID Prescribed by: NIKHIL TINEO on 03/18/201917 Montelukast Sodium 10 Mg Tablet, 10 MG PO HS Prescribed by: LLOYD COY on 10/18/18906 Naproxen Sodium 220 Mg Capsule, 220-880 MG PO Q8H PRN for PAIN-MILD, (Reported) Prednisone 10 Mg Tab.ds.pk, 10 MG PO DAILY Take 6 tabs(60mg)daily,decrease by 1 tab(10MG)daily. Prescribed by: LLOYD COY on 10/18/18906 Promethazine HCl 25 Mg Tablet, 25 MG PO DAILY PRN for NAUSEA/VOMITING-2ND LINE, (Reported) Promethazine/Dextromethorphan 473 Ml Syrup, 5 ML PO Q4H Prescribed by: NIKHIL TINEO on 03/18/201917 Ranitidine HCl 75 Mg Tablet, 75 MG PO DAILY PRN for HEARTBURN, (Reported) Rosuvastatin Calcium 40 Mg Tablet, 40 MG PO DAILY, (Reported) Tramadol HCl 50 Mg Tablet, 50 MG PO Q8H PRN for PAIN-MODERATE, (Reported) Patient Home Medication List Home Medication List Reviewed: Yes Review of Systems Review of Systems Constitutional: see HPI; No chills, No fever EENTM: No Symptoms Reported Respiratory: No Symptoms Reported Cardiovascular: No Symptoms Reported Gastrointestinal: See HPI, Abdominal Pain Genitourinary: No Symptoms Reported Musculoskeletal: no symptoms reported Skin: no symptoms reported Psychiatric/Neurological: No Symptoms Reported Endocrine: No Symptoms Reported Hematologic/Lymphatic: No Symptoms Reported Past Dxllxgr-Kubivw-Miwlog Hx Patient Social History Alcohol Use: Denies Use Number of Drinks Today: Alcohol Beverage of Choice: Wine Drug of Choice: DENIES Smoking Status: Current Everyday Smoker Type Used: Cigarettes Recent Infectious Disease Expo: No Recent Hopitalizations: No Immunizations Up To Date Tetanus Booster (TDap): Unknown PED Vaccines UTD: No Date of Pneumonia Vaccine: Sep 22, 2008 Seasonal Allergies Seasonal Allergies: No Past Medical History Surgeries: Yes (BILATERAL CARPAL TUNNEL, RIGHT ELBOW/ULNAR NERVE RELEASE?) Gallbladder, Orthopedic, Tubal Ligation Respiratory: Yes ("REACTIVE AIRWAY DZ" ; RESP FAILURE) Chronic Bronchitis Cardiac: No Neurological: Yes Headaches /Migraines 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 SOCIAL HISTORY: -ETOH--RAARE USE -DRUGS--DENIES USE, BUT UDS + FOR THC, TRICYCLICS -SMOKES 1 PPD Physical Exam Vital Signs Vital Signs - First Documented 08/11/20 12:50 Temp 36.2 Pulse 87 Resp 18 B/P (MAP) 143/90 (107) Pulse Ox 99 Capillary Refill : Less Than 3 Seconds Height/Weight/BMI Height: 5'6.00" Weight: 259lbs. 4.0oz. 117.438918gn; 22.00 BMI Method:Stated General Appearance: WD/WN, no apparent distress HEENT: PERRL/EOMI, normal ENT inspection Respiratory: no respiratory distress, no accessory muscle use Cardiovascular: regular rate, rhythm, no murmur Gastrointestinal: normal bowel sounds, soft, tenderness Extremities: normal range of motion, non-tender Neurologic/Psychiatric: alert, normal mood/affect, oriented x 3 Skin: normal color, warm/dry Progress/Results/Core Measures Results/Orders Lab Results Laboratory Tests Test 08/11/20 13:10 Range/Units White Blood Count 8.9 4.3-11.0 10^3/uL Red Blood Count 4.66 3.80-5.11 10^6/uL Hemoglobin 14.8 11.5-16.0 g/dL Hematocrit 45 35-52 % Mean Corpuscular Volume 96 80-99 fL Mean Corpuscular Hemoglobin 32 25-34 pg Mean Corpuscular Hemoglobin Concent 33 32-36 g/dL Red Cell Distribution Width 12.6 10.0-14.5 % Platelet Count 232 130-400 10^3/uL Mean Platelet Volume 12.1 9.0-12.2 fL Immature Granulocyte % (Auto) 0 % Neutrophils (%) (Auto) 63 42-75 % Lymphocytes (%) (Auto) 26 12-44 % Monocytes (%) (Auto) 8 0-12 % Eosinophils (%) (Auto) 3 0-10 % Basophils (%) (Auto) 1 0-10 % Neutrophils # (Auto) 5.6 1.8-7.8 10^3/uL Lymphocytes # (Auto) 2.3 1.0-4.0 10^3/uL Monocytes # (Auto) 0.7 0.0-1.0 10^3/uL Eosinophils # (Auto) 0.3 0.0-0.3 10^3/uL Basophils # (Auto) 0.0 0.0-0.1 10^3/uL Immature Granulocyte # (Auto) 0.0 0.0-0.1 10^3/uL Sodium Level 142 135-145 MMOL/L Potassium Level 4.4 3.6-5.0 MMOL/L Chloride Level 109 H 98-107 MMOL/L Carbon Dioxide Level 20 L 21-32 MMOL/L Anion Gap 13 5-14 MMOL/L Blood Urea Nitrogen 10 7-18 MG/DL Creatinine 0.73 0.60-1.30 MG/DL Estimat Glomerular Filtration Rate > 60 BUN/Creatinine Ratio 14 Glucose Level 97 70-105 MG/DL Calcium Level 9.6 8.5-10.1 MG/DL Corrected Calcium 9.4 8.5-10.1 MG/DL Total Bilirubin 0.5 0.1-1.0 MG/DL Aspartate Amino Transf (AST/SGOT) 24 5-34 U/L Alanine Aminotransferase (ALT/SGPT) 23 0-55 U/L Alkaline Phosphatase 142 H 40-136 U/L Total Protein 7.6 6.4-8.2 GM/DL Albumin 4.3 3.2-4.5 GM/DL My Orders Orders - HAKAN PRINCE COLORING ROOM WORKER Cbc With Automated Diff (08/11/20 13:24) Comprehensive Metabolic Panel (08/11/20 13:24) Ct Abd/Pelvis Wo(Kidney Stone) (08/11/20 13:24) Ua Culture If Indicated (08/11/20 13:24) Ketorolac Injection (Toradol Injection) (08/11/20 13:30) Fentanyl Inj (Sublimaze Injection) (08/11/20 13:30) Ns Iv 1000 Ml (Sodium Chloride 0.9%) (08/11/20 13:30) Ondansetron Injection (Zofran Injectio (08/11/20 13:30) Hydrocodone/Apap 5/325 Tablet (Lortab 5 (08/11/20 14:00) Medications Given in ED Current Medications Medications Dose Ordered Sig/Kaykay Route Start Time Stop Time Status Last Admin Dose Admin Fentanyl Citrate 50 mcg ONCE ONCE IVP 08/11/20 13:30 08/11/20 13:31 DC 08/11/20 13:36 50 MCG Ketorolac Tromethamine 15 mg ONCE ONCE IVP 08/11/20 13:30 08/11/20 13:31 DC 08/11/20 13:37 15 MG Ondansetron HCl 8 mg ONCE ONCE IVP 08/11/20 13:30 08/11/20 13:31 DC 08/11/20 13:37 8 MG Vital Signs/I&O 08/11/20 12:50 Temp 36.2 Pulse 87 Resp 18 B/P (MAP) 143/90 (107) Pulse Ox 99 Blood Pressure Mean: 107 Departure Communication (Admissions) Family Conversation NAME: S[facility] SANTIAGO [facility] REC#: [id number] PT STATUS: REG ER : 1970 PHYSICIAN: HAKAN PRINCE COLORING ROOM WORKER ADMIT DATE: 08/11/20/ER Draft Date of Exam:08/11/20 CT ABD/PELVIS WO(KIDNEY STONE) PROCEDURE: CT urinary tract, rule out kidney stone. TECHNIQUE: Multiple contiguous axial images were obtained through the abdomen and pelvis without the use of intravenous contrast. Auto Exposure Controls were utilized during the CT exam to meet ALARA standards for radiation dose reduction. INDICATION: Right lower quadrant pain since last night. EXAMINATION: CT abdomen and pelvis without contrast 08/11/2020. FINDINGS: The lung base is clear. The nonopacified abdominal viscera limited due to lack of contrast with no gross abnormality appreciated in the liver or spleen. There is evidence of previous cholecystectomy. There is a solid lesion along the left adrenal gland which measures 1.9 cm in size, dedicated adrenal protocol CT recommended on nonemergent basis. Right adrenal gland unremarkable. Kidneys unremarkable with no nephrolithiasis or hydronephrosis. Pancreas unremarkable. Appendix is normal. Minimal nonspecific fat stranding is seen lateral to the cecum which could be due to a mild focal colitis. No adjacent free air or fluid appreciated. There is no ascites or free air. Mild atherosclerotic disease is noted. There is no acute osseous abnormality. IMPRESSION: 1. Minimal fat stranding adjacent to the cecum which could be a chronic finding versus a mild colitis or even diverticulitis, has a few diverticuli noted in the region, correlate with patient's symptoms. Appendix normal. 2. Nodule in the left adrenal gland, followup is recommended as discussed above. Dictated on workstation # [id number] Dict: 08/11/20 1358 Trans: 08/11/20 1413 [facility] [id number] Interpreted by: TIFF KUMAR MD Electronically signed by: Impression Primary Impression: RLQ abdominal pain Additional Impression: Diverticulitis Disposition: 01 HOME, SELF-CARE Condition: Stable Departure-Patient Inst. Decision time for Depature: 14:21 Referrals: NO,LOCAL PHYSICIAN (PCP/Family) Primary Care Physician Patient Instructions: Abdominal Pain, Adult ED, Diverticulitis Add. Discharge Instructions: 1. Medication as directed 2. Return to ER for any concerns 3. All discharge instructions reviewed with patient and/or family. Voiced understanding. Scripts Ondansetron (Ondansetron Odt) 8 Mg Tab.rapdis 8 MG PO Q6H PRN for NAUSEA/VOMITING, #10 TAB Prov: HAKAN PRINCE APRN 08/11/20 Hydrocodone/Acetaminophen (Hydrocodone-Acetamin 5-325 mg) 1 Each Tablet 1 TAB PO Q4H PRN for PAIN-MODERATE (5-7), #10 TAB Prov: HAKAN PRINCE APRN 08/11/20 Amoxicillin/Potassium Clav (Augmentin 875-125 Tablet) 1 Each Tablet 1 EACH PO BID, #14 TAB 0 Refills Prov: HAKAN PRINCE APRN 08/11/20 HAKAN PRINCE APRN Aug 11, 2020 13:27
[2020-08-11] MEDS ORDERED: KETOROLAC 30 MG/ML VIAL IVP ONE (13:30)
[2020-08-11] MEDS ORDERED: ONDANSETRON 4 MG/2 ML (SDV) Z0FRAN IVP ONE (13:30)
[2020-08-11] MEDS ORDERED: NS IV 1000 ML 1,000 ML IV SCH (13:30)
[2020-08-11] MEDS ORDERED: fentaNYL INJ 100 MCG/2 ML AMP IVP ONE (13:30)
[2020-08-11 13:39] LABS: ALBUMIN 4.3 GM/DL (3.2-4.5); CHLORIDE 109 MMOL/L (98-107); POTASSIUM 4.4 MMOL/L (3.6-5.0); SODIUM 142 MMOL/L (135-145)
[2020-08-11 13:40] LABS: CALCIUM 9.6 MG/DL (8.5-10.1)
[2020-08-11 13:41] LABS: GLUCOSE 97 MG/DL (70-105)
[2020-08-11 13:42] LABS: TOTAL PROTEIN 7.6 GM/DL (6.4-8.2)
[2020-08-11 13:43] LABS: BILIRUBIN,TOTAL 0.5 MG/DL (0.1-1.0); CARBON DIOXIDE 20 MMOL/L (21-32)
[2020-08-11 13:44] LABS: BASOPHILS % (AUTO) 1 % (0-10); EOSINOPHILS # (AUTO) 0.3 10^3/uL (0.0-0.3); EOSINOPHILS % (AUTO) 3 % (0-10); HEMATOCRIT 45 % (35-52); HEMOGLOBIN 14.8 g/dL (11.5-16.0); LYMPHOCYTES # (AUTO) 2.3 10^3/uL (1.0-4.0); LYMPHOCYTES % (AUTO) 26 % (12-44); MEAN CORPUSCULAR HEMOGLOBIN 32 pg (25-34); MEAN CORPUSCULAR HGB CONC 33 g/dL (32-36); MEAN CORPUSCULAR VOLUME 96 fL (80-99); MEAN PLATELET VOLUME 12.1 fL (9.0-12.2); MONOCYTES # (AUTO) 0.7 10^3/uL (0.0-1.0); MONOCYTES % (AUTO) 8 % (0-12); NEUTROPHILS # (AUTO) 5.6 10^3/uL (1.8-7.8); NEUTROPHILS % (AUTO) 63 % (42-75); PLATELET COUNT 232 10^3/uL (130-400); WHITE BLOOD COUNT 8.9 10^3/uL (4.3-11.0)
[2020-08-11 13:45] LABS: ALKALINE PHOSPHATASE 142 U/L (40-136); CREATININE SERUM 0.73 MG/DL (0.60-1.30); GFR ESTIMATED > 60
[2020-08-11 13:46] LABS: BUN/CREATININE RATIO 14
[2020-08-11 13:48] LABS: ALANINE AMINOTRANSFERASE 23 U/L (0-55)
[2020-08-11] MEDS ORDERED: HYDROcodone/APAP 5 MG/325 MG (LORTAB) TAB PO ONE ×2 (14:00→14:30)
--- NOTE | 2020-08-11 14:14 | Diagnostic Imaging Report ---
PROCEDURE: CT urinary tract, rule out kidney stone. TECHNIQUE: Multiple contiguous axial images were obtained through the abdomen and pelvis without the use of intravenous contrast. Auto Exposure Controls were utilized during the CT exam to meet ALARA standards for radiation dose reduction. INDICATION: Right lower quadrant pain since last night. EXAMINATION: CT abdomen and pelvis without contrast 08/11/2020. FINDINGS: The lung base is clear. The nonopacified abdominal viscera limited due to lack of contrast with no gross abnormality appreciated in the liver or spleen. There is evidence of previous cholecystectomy. There is a solid lesion along the left adrenal gland which measures 1.9 cm in size, dedicated adrenal protocol CT recommended on nonemergent basis. Right adrenal gland unremarkable. Kidneys unremarkable with no nephrolithiasis or hydronephrosis. Pancreas unremarkable. Appendix is normal. Minimal nonspecific fat stranding is seen lateral to the cecum which could be due to a mild focal colitis. No adjacent free air or fluid appreciated. There is no ascites or free air. Mild atherosclerotic disease is noted. There is no acute osseous abnormality. IMPRESSION: 1. Minimal fat stranding adjacent to the cecum which could be a chronic finding versus a mild colitis or even diverticulitis, has a few diverticuli noted in the region, correlate with patient's symptoms. Appendix normal. 2. Nodule in the left adrenal gland, followup is recommended as discussed above. Dictated by: Dictated on workstation # [id number]
[2020-08-11] MEDS ORDERED: ACHD5005 PO (14:24)
[2020-08-11] MEDS ORDERED: ONDA8TAB13 PO (14:24)
[2020-08-11] MEDS ORDERED: AMOX-358 PO (14:24)
[2020-08-11] MEDS ORDERED: cefTRIAXone 1,000 MG in WATER (STERILE) FOR INJECTION 10 ML IV ONE (14:30)
[2020-08-11 14:34] LABS: BILIRUBIN,URINE NEGATIVE (NEGATIVE); CLARITY,URINE CLEAR; COLOR,URINE YELLOW; GLUCOSE, URINE (UA) NEGATIVE (NEGATIVE); KETONES,URINE NEGATIVE (NEGATIVE); LEUKOCYTE ESTERASE ,URINE TRACE (NEGATIVE); NITRITE,URINE NEGATIVE (NEGATIVE); PH,URINE 8.5 (5-9); PROTEIN,URINE NEGATIVE (NEGATIVE)
[2020-08-11 14:55] VITALS: BP 136/72
[2020-08-11 14:56] LABS: BACTERIA,URINE TRACE /HPF; WBC,URINE 0-2 /HPF
== END 2020-08-11 14:54 | disposition home or self-care (01) ==
LOC: EDUNIT# 11:48 → ER 11:51
DX: K57.92 Diverticulitis of intestine, part unspecified, without perforation or abscess without bleeding (principal); E66.9 Obesity, unspecified; F41.9 Anxiety disorder, unspecified; F32.9 Major depressive disorder, single episode, unspecified; G43.909 Migraine, unspecified, not intractable, without status migrainosus; F17.210 Nicotine dependence, cigarettes, uncomplicated; Z68.22 Body mass index [BMI] 22.0-22.9, adult; Z79.899 Other long term (current) drug therapy; Z79.52 Long term (current) use of systemic steroids
CPT/HCPCS: 36415; 74176; 80053; 81000; 85025

== ENCOUNTER 2020-08-16 14:58 | Emergency (ER) | payer OTHER ==
[~2020-08-16] VITALS: Ht 167 cm; Wt 108.0 kg
[~2020-08-16 14:58] MED LIST changes: +ACHD5005 PO; +AMOX-358 PO; +DOXY-311 PO; -DOXY100C42 PO; +ONDA8TAB13 PO
--- NOTE | 2020-08-16 15:33 | ED Abdominal Pain ---
General Chief Complaint: Abdominal/GI Problems Stated Complaint: ABDOMINAL PAIN, NAUSEA Nursing Triage Note: ARRIVED VIA AMB TO ROOM 05 WITH COMPLAINTS OF RIGHT LOWER QUAD PAIN THAT RADIATES INTO BACK. WAS SEEN HERE [facility] WITH DIVERTICULITIS. WAS GIVEN ABX AT [facility] ON WEDNESDAY X5 DAYS AND STATES SHE IS NOT BETTER. SENT OVER FROM [facility]. Sepsis Screen: No Definite Risk Source of Information: Patient Exam Limitations: No Limitations (HAKAN PRINCE APRN) History of Present Illness Date Seen by Provider: Aug 16, 2020 Time Seen by Provider: 15:20 Initial Comments ER with persistent right lower quadrant abdominal pain x1 week. She has hydrocodone at home but has not taken any since yesterday. She has been in such pain that she was unable to get out of bed since Wednesday. She saw [facility] and was referred back out here. Last week she was prescribed antibiotics for diverticulitis which was very mild based on labs and CT. However her pain is intolerable and persists. Timing/Duration: 1 Week Severity/Quality: Moderate Location: Suprapubic Radiation: No Radiation Activities at Onset: None (HAKAN PRINCE APRN) Allergies and Home Medications Allergies Coded Allergies: hydroxyzine (Unverified Allergy, Severe, 10/15/18) topiramate (Unverified Allergy, Severe, 10/15/18) fluticasone (Unverified Allergy, Intermediate, 10/15/18) montelukast (Unverified Allergy, Intermediate, 10/15/18) salmeterol (Unverified Allergy, Intermediate, 10/15/18) Sulfa (Sulfonamide Antibiotics) (Verified Allergy, Unknown, 10/15/18) Home Medications Albuterol Sulfate 1 Puff Puff, 2 PUFF IH Q4H 1 PUFF = 90 MCG Prescribed by: LLOYD COY on 10/18/18 0907 Amitriptyline HCl 25 Mg Tablet, 25 MG PO HS, (Reported) Amoxicillin/Potassium Clav 1 Each Tablet, 1 EACH PO BID Prescribed by: HAKAN PRINCE on 08/11/20 1424 Azithromycin 500 Mg Tablet, 500 MG PO DAILY Prescribed by: NIKHIL TINEO on 03/18/20 1918 Benzonatate 100 Mg Capsule, 100 MG PO Q8H PRN for COUGH, (Reported) Benzonatate 100 Mg Capsule, 200 MG PO TID Prescribed by: NIKHIL TINEO on 03/18/201917 Budesonide 180 Mcg Aer.pow.ba, 180 MCG IH BID Prescribed by: NIKHIL TINEO on 03/18/201917 Buspirone HCl 10 Mg Tablet, 20 MG PO HS, (Reported) Cefdinir 300 Mg Capsule, 300 MG PO BID Prescribed by: NIKHIL TINEO on 03/18/201917 Fluticasone/Salmeterol 1 Each Blst.w.dev, 1 EACH IH BID Prescribed by: LLOYD COY on 10/18/18906 Galcanezumab-Gnlm 120 Mg/1 Ml Pen.injctr, 120 MG SQ MONTHLY, (Reported) Hydrocodone/Acetaminophen 1 Each Tablet, 1 TAB PO Q4H PRN for PAIN-MODERATE (5- 7) Prescribed by: HAKAN PRINCE on 08/11/20 142 Levofloxacin 750 Mg Tablet, 750 MG PO DAILY@1100 Prescribed by: LLOYD COY on 10/18/18906 Lorazepam 1 Mg Tablet, 1 MG SL BID PRN for ANXIETY Prescribed by: HAKAN PRINCE on 05/27/20 1511 Methylprednisolone 4 Mg Tab.ds.pk, 4 MG PO UD PER DOSE PACK INSTRUCTIONS Prescribed by: NIKHIL TINEO on 03/18/201917 Metronidazole 500 Mg Tablet, 500 MG PO QID Prescribed by: NIKHIL TINEO on 03/18/201917 Metronidazole 500 Mg Tablet, 500 MG PO BID Prescribed by: HAKAN PRICNE on 08/16/20 1631 Montelukast Sodium 10 Mg Tablet, 10 MG PO HS Prescribed by: LLOYD COY on 10/18/18 09 Naproxen Sodium 220 Mg Capsule, 220-880 MG PO Q8H PRN for PAIN-MILD, (Reported) Ondansetron 8 Mg Tab.rapdis, 8 MG PO Q6H PRN for NAUSEA/VOMITING Prescribed by: HAKAN PRINCE on 08/11/20 142 Prednisone 10 Mg Tab.ds.pk, 10 MG PO DAILY Take 6 tabs(60mg)daily,decrease by 1 tab(10MG)daily. Prescribed by: LLOYD COY on 10/18/18906 Promethazine HCl 25 Mg Tablet, 25 MG PO DAILY PRN for NAUSEA/VOMITING-2ND LINE, (Reported) Promethazine/Dextromethorphan 473 Ml Syrup, 5 ML PO Q4H Prescribed by: NIKHIL TINEO on 03/18/201917 Ranitidine HCl 75 Mg Tablet, 75 MG PO DAILY PRN for HEARTBURN, (Reported) Rosuvastatin Calcium 40 Mg Tablet, 40 MG PO DAILY, (Reported) Tramadol HCl 50 Mg Tablet, 50 MG PO Q8H PRN for PAIN-MODERATE, (Reported) Patient Home Medication List Home Medication List Reviewed: Yes (HAKAN PRINCE APRN) Review of Systems Review of Systems Constitutional: see HPI; No chills, No fever EENTM: No Symptoms Reported Respiratory: No Symptoms Reported Cardiovascular: No Symptoms Reported Gastrointestinal: See HPI, Abdominal Pain Genitourinary: No Symptoms Reported Musculoskeletal: no symptoms reported Skin: no symptoms reported Psychiatric/Neurological: No Symptoms Reported Endocrine: No Symptoms Reported Hematologic/Lymphatic: No Symptoms Reported (HAKAN PRINCE APRN) Past Quxtbol-Xdgogy-Pulayv Hx Patient Social History Alcohol Use: Rarely Uses Number of Drinks Today: Alcohol Beverage of Choice: Wine Drug of Choice: DENIES Smoking Status: Current Everyday Smoker Type Used: Cigarettes Recent Infectious Disease Expo: No Recent Hopitalizations: No (HAKAN PRINCE APRN) Immunizations Up To Date Tetanus Booster (TDap): Unknown PED Vaccines UTD: No Date of Pneumonia Vaccine: Sep 22, 2008 (HAKAN PRINCE APRN) Seasonal Allergies Seasonal Allergies: No (HAKAN PRINCE APRN) Past Medical History Surgeries: Yes (BILATERAL CARPAL TUNNEL, RIGHT ELBOW/ULNAR NERVE RELEASE?) Gallbladder, Orthopedic, Tubal Ligation Respiratory: Yes ("REACTIVE AIRWAY DZ" ; RESP FAILURE) Chronic Bronchitis Cardiac: No Neurological: Yes Headaches /Migraines 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 SOCIAL HISTORY: -ETOH--RAARE USE -DRUGS--DENIES USE, BUT UDS + FOR THC, TRICYCLICS -SMOKES 1 PPD (HAKAN PRINCE APRN) Physical Exam Vital Signs Vital Signs - First Documented 08/16/20 15:20 Temp 36.0 Pulse 91 Resp 16 B/P (MAP) 132/101 (111) Pulse Ox 99 O2 Delivery Room Air (GRACE URIAS MD) Vital Signs Capillary Refill : Less Than 3 Seconds (HAKAN PRINCE APRN) Height/Weight/BMI Height: 5'6.00" Weight: 259lbs. 4.0oz. 117.463714uc; 38.00 BMI Method:Stated General Appearance: WD/WN, no apparent distress HEENT: PERRL/EOMI, normal ENT inspection Respiratory: no respiratory distress, no accessory muscle use Gastrointestinal: normal bowel sounds, soft, tenderness Extremities: normal range of motion, non-tender Neurologic/Psychiatric: alert, normal mood/affect, oriented x 3 Skin: normal color, warm/dry (HAKAN PRINCE APRN) Progress/Results/Core Measures Results/Orders Lab Results Laboratory Tests Test 08/16/20 15:30 08/16/20 16:00 Range/Units Urine Color YELLOW Urine Clarity CLEAR Urine pH 8.0 5-9 Urine Specific [place] 1.020 1.016-1.022 Urine Protein NEGATIVE NEGATIVE Urine Glucose (UA) NEGATIVE NEGATIVE Urine Ketones NEGATIVE NEGATIVE Urine Nitrite NEGATIVE NEGATIVE Urine Bilirubin NEGATIVE NEGATIVE Urine Urobilinogen 0.2 < = 1.0 MG/DL Urine Leukocyte Esterase TRACE H NEGATIVE Urine RBC (Auto) NEGATIVE NEGATIVE Urine RBC NONE /HPF Urine WBC 2-5 /HPF Urine Squamous Epithelial Cells 2-5 /HPF Urine Crystals NONE /LPF Urine Bacteria TRACE /HPF Urine Casts NONE /LPF Urine Mucus NEGATIVE /LPF Urine Trichomonas MODERATE H /HPF Urine Culture Indicated NO Urine Opiates Screen POSITIVE H NEGATIVE Urine Oxycodone Screen NEGATIVE NEGATIVE Urine Methadone Screen NEGATIVE NEGATIVE Urine Propoxyphene Screen NEGATIVE NEGATIVE Urine Barbiturates Screen NEGATIVE NEGATIVE Ur Tricyclic Antidepressants Screen POSITIVE H NEGATIVE Urine Phencyclidine Screen NEGATIVE NEGATIVE Urine Amphetamines Screen NEGATIVE NEGATIVE Urine Methamphetamines Screen NEGATIVE NEGATIVE Urine Benzodiazepines Screen NEGATIVE NEGATIVE Urine Cocaine Screen NEGATIVE NEGATIVE Urine Cannabinoids Screen POSITIVE H NEGATIVE White Blood Count 8.1 4.3-11.0 10^3/uL Red Blood Count 4.43 3.80-5.11 10^6/uL Hemoglobin 13.8 11.5-16.0 g/dL Hematocrit 41 35-52 % Mean Corpuscular Volume 93 80-99 fL Mean Corpuscular Hemoglobin 31 25-34 pg Mean Corpuscular Hemoglobin Concent 33 32-36 g/dL Red Cell Distribution Width 12.7 10.0-14.5 % Platelet Count 288 130-400 10^3/uL Mean Platelet Volume 11.2 9.0-12.2 fL Immature Granulocyte % (Auto) 0 % Neutrophils (%) (Auto) 65 42-75 % Lymphocytes (%) (Auto) 24 12-44 % Monocytes (%) (Auto) 7 0-12 % Eosinophils (%) (Auto) 2 0-10 % Basophils (%) (Auto) 1 0-10 % Neutrophils # (Auto) 5.3 1.8-7.8 X 10^3 Lymphocytes # (Auto) 2.0 1.0-4.0 X 10^3 Monocytes # (Auto) 0.6 0.0-1.0 X 10^3 Eosinophils # (Auto) 0.2 0.0-0.3 10^3/uL Basophils # (Auto) 0.1 0.0-0.1 10^3/uL Immature Granulocyte # (Auto) 0.0 0.0-0.1 10^3/uL Sodium Level 141 135-145 MMOL/L Potassium Level 3.9 3.6-5.0 MMOL/L Chloride Level 106 98-107 MMOL/L Carbon Dioxide Level 19 L 21-32 MMOL/L Anion Gap 16 H 5-14 MMOL/L Blood Urea Nitrogen 10 7-18 MG/DL Creatinine 0.74 0.60-1.30 MG/DL Estimat Glomerular Filtration Rate > 60 BUN/Creatinine Ratio 14 Glucose Level 97 70-105 MG/DL Calcium Level 9.9 8.5-10.1 MG/DL Corrected Calcium 9.7 8.5-10.1 MG/DL Total Bilirubin 0.3 0.1-1.0 MG/DL Aspartate Amino Transf (AST/SGOT) 19 5-34 U/L Alanine Aminotransferase (ALT/SGPT) 21 0-55 U/L Alkaline Phosphatase 124 40-136 U/L C-Reactive Protein High Sensitivity 0.58 H 0.00-0.50 MG/DL Total Protein 7.5 6.4-8.2 GM/DL Albumin 4.3 3.2-4.5 GM/DL (GRACE URIAS MD) Medications Given in ED Current Medications Medications Dose Ordered Sig/[place]kay Route Start Time Stop Time Status Last Admin Dose Admin Acetaminophen/ Hydrocodone Bitart 1 ea ONCE ONCE PO 08/16/20 16:45 08/16/20 16:44 DC 08/16/20 16:42 1 EA Metronidazole 500 mg ONCE ONCE PO 08/16/20 16:45 08/16/20 16:44 DC 08/16/20 16:42 500 MG (GRACE URIAS MD) Vital Signs/I&O 08/16/20 08/16/20 15:20 16:44 Temp 36.0 Pulse 91 81 Resp 16 16 B/P (MAP) 132/101 (111) 116/91 Pulse Ox 99 99 O2 Delivery Room Air Room Air (GRACE URIAS MD) Blood Pressure Mean: 111 Departure Impression Primary Impression: Abdominal pain Additional Impression: Trichomoniasis Disposition: HOME, SELF-CARE Condition: Stable Departure-Patient Inst. Decision time for Depature: 16:30 (HAKAN PRINCE APRN) Referrals: NO,LOCAL PHYSICIAN (PCP/Family) Primary Care Physician Patient Instructions: Trichomoniasis (DC) Add. Discharge Instructions: 1. Take medication as directed. Follow-up with your doctor next week. All discharge instructions reviewed with patient and/or family. Voiced un derstanding. Scripts Metronidazole (Metronidazole) 500 Mg Tablet 500 MG PO BID, #14 TAB 0 Refills Prov: HAKAN PRINCE APRN 08/16/20 Attending physician note: I was physically present in the emergency room as attending physician at the time of this patient's encounter, but I was not directly involved in the care or decision-making for this patient. (GRACE URIAS MD) HAKAN PRINCE APRN Aug 16, 2020 15:33 GRACE URIAS MD Aug 16, 2020 18:26
[2020-08-16 15:36] LABS: BILIRUBIN,URINE NEGATIVE (NEGATIVE); CLARITY,URINE CLEAR; COLOR,URINE YELLOW; GLUCOSE, URINE (UA) NEGATIVE (NEGATIVE); KETONES,URINE NEGATIVE (NEGATIVE); LEUKOCYTE ESTERASE ,URINE TRACE (NEGATIVE); NITRITE,URINE NEGATIVE (NEGATIVE); PROTEIN,URINE NEGATIVE (NEGATIVE)
[2020-08-16 15:55] LABS: AMPHETAMINE SCREEN, URINE NEGATIVE (NEGATIVE); BARBITURATE SCREEN URINE NEGATIVE (NEGATIVE); BENZODIAZEPINES SCREEN URINE NEGATIVE (NEGATIVE); CANNABINOID SCREEN, URINE POSITIVE (NEGATIVE); COCAINE SCREEN URINE NEGATIVE (NEGATIVE); METHADONE STAT NEGATIVE (NEGATIVE); METHAMPHETAMINE SCREEN URINE S NEGATIVE (NEGATIVE); OPIATE SCREEN URINE POSITIVE (NEGATIVE); OXYCODONE STAT NEGATIVE (NEGATIVE); PROPOXYPHENE STAT NEGATIVE (NEGATIVE); TRICYCLIC ANTIDEPRESSANTS SCRE POSITIVE (NEGATIVE)
[2020-08-16 16:09] LABS: BASOPHILS # (AUTO) 0.1 10^3/uL (0.0-0.1); BASOPHILS % (AUTO) 1 % (0-10); EOSINOPHILS # (AUTO) 0.2 10^3/uL (0.0-0.3); EOSINOPHILS % (AUTO) 2 % (0-10); HEMATOCRIT 41 % (35-52); HEMOGLOBIN 13.8 g/dL (11.5-16.0); LYMPHOCYTES % (AUTO) 24 % (12-44); MEAN CORPUSCULAR HEMOGLOBIN 31 pg (25-34); MEAN CORPUSCULAR HGB CONC 33 g/dL (32-36); MEAN CORPUSCULAR VOLUME 93 fL (80-99); MEAN PLATELET VOLUME 11.2 fL (9.0-12.2); MONOCYTES # (AUTO) 0.6 X 10^3 (0.0-1.0); MONOCYTES % (AUTO) 7 % (0-12); NEUTROPHILS # (AUTO) 5.3 X 10^3 (1.8-7.8); NEUTROPHILS % (AUTO) 65 % (42-75); PLATELET COUNT 288 10^3/uL (130-400); WHITE BLOOD COUNT 8.1 10^3/uL (4.3-11.0)
[2020-08-16 16:20] LABS: ALBUMIN 4.3 GM/DL (3.2-4.5); CHLORIDE 106 MMOL/L (98-107); POTASSIUM 3.9 MMOL/L (3.6-5.0); SODIUM 141 MMOL/L (135-145)
[2020-08-16 16:22] LABS: CALCIUM 9.9 MG/DL (8.5-10.1)
[2020-08-16 16:23] LABS: BACTERIA,URINE TRACE /HPF; TRICHOMONAS,URINE MODERATE /HPF
[2020-08-16 16:23] LABS: GLUCOSE 97 MG/DL (70-105); TOTAL PROTEIN 7.5 GM/DL (6.4-8.2)
[2020-08-16 16:24] LABS: CARBON DIOXIDE 19 MMOL/L (21-32)
[2020-08-16 16:25] LABS: BILIRUBIN,TOTAL 0.3 MG/DL (0.1-1.0)
[2020-08-16 16:26] LABS: ALKALINE PHOSPHATASE 124 U/L (40-136); CREATININE SERUM 0.74 MG/DL (0.60-1.30); GFR ESTIMATED > 60
[2020-08-16 16:27] LABS: BUN/CREATININE RATIO 14
[2020-08-16 16:29] LABS: ALANINE AMINOTRANSFERASE 21 U/L (0-55)
[2020-08-16] MEDS ORDERED: METR-145 PO (16:31)
[2020-08-16 16:44] VITALS: BP 116/91
[2020-08-16] MEDS ORDERED: metroNIDAZOLE 500 MG (FLAGYL) TAB PO ONE (16:45)
[2020-08-16] MEDS ORDERED: HYDROcodone/APAP 5 MG/325 MG (LORTAB) TAB PO ONE (16:45)
== END 2020-08-16 16:44 | disposition home or self-care (01) ==
LOC: EDUNIT# 14:58 → ER 15:00
DX: R10.31 Right lower quadrant pain (principal); A59.9 Trichomoniasis, unspecified; E66.9 Obesity, unspecified; F41.9 Anxiety disorder, unspecified; G89.29 Other chronic pain; M54.9 Dorsalgia, unspecified; F32.9 Major depressive disorder, single episode, unspecified; F17.210 Nicotine dependence, cigarettes, uncomplicated; Z68.38 Body mass index [BMI] 38.0-38.9, adult; Z79.52 Long term (current) use of systemic steroids; Z79.891 Long term (current) use of opiate analgesic; Z79.899 Other long term (current) drug therapy
CPT/HCPCS: 36415; 80053; 80306; 81000; 85025; 86141; 99283